=== PATIENT | female | born 1955 | race Caucasian/White ===

== ENCOUNTER 2019-08-13 09:05 | Outpatient (CLI) | payer OTHER, SELFPAY ==
--- NOTE | 2019-08-13 09:09 | ECG_ITS ---
Measurements Intervals [place] Rate: 67 P: 66 ME: 149 QRS: 61 QRSD: 88 T: 29 QT: 390 QTc: 413 Interpretive Statements SINUS RHYTHM BORDERLINE R WAVE PROGRESSION, ANTERIOR LEADS NONSPECIFIC T-WAVE ABNORMALITY- INFERIOR LEADS BORDERLINE ECG Electronically Signed On 08-13-2019 9:35:40 CDT by Raul Jacinto D.O.
[2019-08-13 09:18] LABS: Basophils Absolute Auto 0.02 K/mm3 (0.00-0.10); Basophils Percent Auto 0.3 % (0.0-1.0); Eosinophils Absolute Auto 0.13 K/mm3 (0.02-0.50); Eosinophils Percent Auto 1.8 % (1.0-6.0); Hematocrit 43.1 % (35.0-49.0); Immature Granulocyte Absolute 0.03 K/mm3 (0.00-0.00); Immature Granulocyte Percent A 0.4 % (0.0-0.0); Lymphocytes Absolute Auto 2.51 K/mm3 (1.10-4.50); Lymphocytes Percent Auto 34.4 % (18.0-42.0); Mean Corpuscular HGB Conc 32.5 g/dL (32.0-36.0); Mean Corpuscular Hemoglobin 29.3 pg (27.0-31.0); Mean Corpuscular Volume 90.2 fL (78.0-102.0); Mean Platelet Volume 9.4 fl (9.2-11.8); Monocytes Absolute Auto 0.63 K/mm3 (0.10-0.90); Monocytes Percent Auto 8.6 % (2.0-11.0); Neutrophils Percent Auto 54.5 % (50.0-70.0); Platelet Count Result 157 K/mm3 (150-420); Red Blood Count 4.78 M/mm3 (4.20-5.40); Red Cell Distribution Width 12.2 % (11.6-14.4); White Blood Count 7.3 K/mm3 (4.8-10.8)
[2019-08-13 09:29] LABS: Prothrombin Time 10.5 Seconds (9.64-11.0)
[2019-08-13 09:47] LABS: Hemoglobin A1C 8.6 % (<5.7)
[2019-08-13 10:21] LABS: Alanine Aminotransferase 39 U/L (14-59); Albumin Level 3.7 g/dL (3.4-5.0); Alkaline Phosphatase 87 U/L (46-116); Anion Gap 15.7 mmol/L (7-16); Aspartate Amino Transferase 40 U/L (15-37); Bilirubin,Total 0.7 mg/dL (0.00-1.00); Blood Urea Nitrogen 24 mg/dL (7-18); Calcium 8.9 mg/dL (8.5-10.1); Carbon Dioxide 27 mmol/L (21-32); Chloride 104 mmol/L (98-108); Cholesterol 170 mg/dL (0-200); Estimated Glomerular Filt Rate > 60; Glucose 164 mg/dL (70-99); HDL Direct 28 mg/dL (40-60); LDL Cholesterol Calculated 104 mg/dL (<130); Osmolality Calculated 302 mOsm/kg (285-295); Potassium 4.7 mmol/L (3.5-5.1); Sodium 142 mmol/L (136-145); Total Protein 7.3 g/dL (6.4-8.2); Triglycerides 189 mg/dL (0-150)
== END 2019-08-13 09:06 | disposition home or self-care (01) ==
PROVIDERS: PCP Nurse Practitioner Family; Visit Provider Nurse Practitioner Family
DX: Z01.818 Encounter for other preprocedural examination (principal); E11.9 Type 2 diabetes mellitus without complications; E78.5 Hyperlipidemia, unspecified
CPT/HCPCS: 36415; 80053; 80061; 83036; 85025; 85610; 93005

== ENCOUNTER 2020-05-05 09:58 | Outpatient (CLI) | payer OTHER, SELFPAY ==
--- NOTE | 2020-05-05 10:02 | ECG_ITS ---
Measurements Intervals [place] Rate: 71 P: 64 TN: 147 QRS: 44 QRSD: 92 T: 186 QT: 376 QTc: 411 Interpretive Statements SINUS RHYTHM BORDERLINE R WAVE PROGRESSION, ANTERIOR LEADS BORDERLINE ST-T WAVE ABNORMALITY- INF/HIGH LAT LEADS BASELINE ARTIFACT- II, III, AVR, AVF, V6 BORDERLINE ECG Electronically Signed On 05-05-2020 10:30:57 PANTOGRAPHER by Raul Jacinto D.O.
[2020-05-05 10:25] LABS: Basophils Absolute Auto 0.03 K/mm3 (0.00-0.10); Basophils Percent Auto 0.4 % (0.0-1.0); Eosinophils Absolute Auto 0.09 K/mm3 (0.02-0.50); Eosinophils Percent Auto 1.3 % (1.0-6.0); Hematocrit 46.5 % (35.0-42.0); Hemoglobin 14.8 g/dL (11.7-13.8); Immature Granulocyte Absolute 0.03 K/mm3 (0.00-0.00); Immature Granulocyte Percent A 0.4 % (0.0-0.0); Lymphocytes Absolute Auto 2.33 K/mm3 (1.10-4.50); Lymphocytes Percent Auto 34.4 % (18.0-42.0); Mean Corpuscular HGB Conc 31.8 g/dL (32.0-36.0); Mean Corpuscular Hemoglobin 28.3 pg (27.0-31.0); Mean Corpuscular Volume 88.9 fL (78.0-102.0); Mean Platelet Volume 9.6 fl (9.2-11.8); Monocytes Absolute Auto 0.61 K/mm3 (0.10-0.90); Neutrophils Absolute Auto 3.7 K/mm3 (1.7-7.2); Neutrophils Percent Auto 54.5 % (50.0-70.0); Platelet Count Result 177 K/mm3 (150-420); Red Blood Count 5.23 M/mm3 (4.20-5.40); Red Cell Distribution Width 12.3 % (11.6-14.4); White Blood Count 6.8 K/mm3 (4.8-10.8)
[2020-05-05 10:40] LABS: Creatinine Urine 75.95 mg/dL (40-278)
[2020-05-05 10:41] LABS: Microalbumin Urine Random 137.5 mg/L
[2020-05-05 10:42] LABS: Hemoglobin A1C 8.8 % (<5.7)
[2020-05-05 10:57] LABS: Alanine Aminotransferase 33 U/L (14-59); Albumin Level 3.7 g/dL (3.4-5.0); Alkaline Phosphatase 92 U/L (46-116); Anion Gap 9 mmol/L (8-16); Aspartate Amino Transferase 23 U/L (15-37); Blood Urea Nitrogen 17 mg/dL (7-18); Calcium 8.8 mg/dL (8.5-10.1); Carbon Dioxide 31 mmol/L (21-32); Chloride 101 mmol/L (98-108); Cholesterol 200 mg/dL (0-200); Estimated Glomerular Filt Rate > 60; Glucose 200 mg/dL (70-99); HDL Direct 29 mg/dL (40-60); LDL Cholesterol Calculated 138 mg/dL (<130); Magnesium 1.7 mg/dL (1.8-2.4); Osmolality Calculated 299 mOsm/kg (285-295); Potassium 4.3 mmol/L (3.5-5.1); Sodium 141 mmol/L (136-145); Total Protein 7.8 g/dL (6.4-8.2); Triglycerides 163 mg/dL (0-150)
== END 2020-05-05 09:59 | disposition home or self-care (01) ==
PROVIDERS: PCP Family Medicine; Visit Provider Nurse Practitioner Family
DX: Z01.818 Encounter for other preprocedural examination (principal); I10 Essential (primary) hypertension; E11.9 Type 2 diabetes mellitus without complications; E78.5 Hyperlipidemia, unspecified; E83.42 Hypomagnesemia
CPT/HCPCS: 36415; 80053; 80061; 82043; 83036; 83735; 85025; 93005

== ENCOUNTER 2020-05-13 11:44 | Outpatient (CLI) | payer MEDICARE, SELFPAY ==
[2020-05-13 23:53] LABS: SARS-CoV-2 RNA PCR Negative
== END 2020-05-13 11:45 | disposition home or self-care (01) ==
PROVIDERS: PCP Nurse Practitioner Family; Visit Provider Nurse Practitioner Family
DX: Z01.818 Encounter for other preprocedural examination (principal); Z20.822 Contact with and (suspected) exposure to COVID-19
CPT/HCPCS: C9803; U0003; U0005

== ENCOUNTER 2020-06-10 12:32 | Outpatient (CLI) | payer OTHER, SELFPAY ==
[2020-06-11 01:17] LABS: SARS-CoV-2 RNA PCR Negative
== END 2020-06-10 12:33 | disposition home or self-care (01) ==
LOC: CHSLAB 12:37
PROVIDERS: PCP Nurse Practitioner Family
DX: Z01.818 Encounter for other preprocedural examination (principal); Z20.822 Contact with and (suspected) exposure to COVID-19
CPT/HCPCS: C9803; U0003; U0005

== ENCOUNTER 2021-07-17 09:45 | Outpatient (CLI) | payer MEDICARE, SELFPAY ==
[2021-07-17 09:58] LABS: Hematocrit 47.6 % (35.0-42.0); Mean Corpuscular HGB Conc 31.5 g/dL (32.0-36.0); Mean Corpuscular Hemoglobin 28.6 pg (27.0-31.0); Mean Corpuscular Volume 90.7 fL (78.0-102.0); Mean Platelet Volume 9.4 fl (9.2-11.8); Platelet Count Result 170 K/mm3 (150-420); Red Blood Count 5.25 M/mm3 (4.20-5.40); Red Cell Distribution Width 12.2 % (11.6-14.4); White Blood Count 6.9 K/mm3 (4.8-10.8)
[2021-07-17 10:08] LABS: Hemoglobin A1C 8.9 % (<5.7)
[2021-07-17 10:13] LABS: Creatinine Urine 121.14 mg/dL (40-278); MALB Creatinine Ratio 260.1 mg/g (0-30); Microalbumin Urine Random 315.1 mg/L
[2021-07-17 10:34] LABS: Alanine Aminotransferase 32 U/L (14-59); Albumin Level 3.9 g/dL (3.4-5.0); Alkaline Phosphatase 103 U/L (46-116); Anion Gap 9 mmol/L (8-16); Aspartate Amino Transferase 34 U/L (15-37); Blood Urea Nitrogen 12 mg/dL (7-18); Carbon Dioxide 31 mmol/L (21-32); Chloride 102 mmol/L (98-108); Cholesterol 195 mg/dL (0-200); Estimated Glomerular Filt Rate > 60; Glucose 213 mg/dL (70-99); HDL Direct 37 mg/dL (40-60); LDL Cholesterol Calculated 129 mg/dL (<130); Magnesium 1.7 mg/dL (1.8-2.4); Osmolality Calculated 299 mOsm/kg (285-295); Potassium 3.8 mmol/L (3.5-5.1); Sodium 142 mmol/L (136-145); Total Protein 7.8 g/dL (6.4-8.2); Triglycerides 146 mg/dL (0-150)
== END 2021-07-17 09:46 | disposition home or self-care (01) ==
LOC: CHSLAB 09:49
PROVIDERS: PCP Family Medicine; Visit Provider Family Medicine
DX: E83.42 Hypomagnesemia (principal); E11.9 Type 2 diabetes mellitus without complications; I10 Essential (primary) hypertension
CPT/HCPCS: 36415; 80053; 80061; 82043; 83036; 83735; 85027

== ENCOUNTER 2022-07-05 08:58 | Outpatient (CLI) | payer MEDICARE, SELFPAY ==
--- NOTE | ~2022-07-05 | MMUS_ITS ---
EXAMINATION: MM diagnostic lien BI w rickey, US breast RT limited HISTORY: Palpable right breast mass for one week. Skin indentation. TECHNIQUE: Additional 3-D tomosynthesis images of the breasts were performed and synthetic 2-D images were generated. CAD analysis was submitted and interpreted. High resolution Limited right breast ult rasound was performed. COMPARISON: No prior studies for comparison. BREAST PARENCHYMAL COMPOSITION: Breast composed of scattered areas of fibroglandular density FINDINGS: MAMMOGRAPHIC FINDINGS: There are no suspicious masses, calcifications or architectural distortion in the left breast. In the right breast in the area of palpable concern there is a spiculated mass in the upper outer quadrant, middle third. There are small lymph nodes overlying the right pectoralis muscle. ULTRASOUND: Limited right breast ultrasound: At 10:00, 5 cm from the nipple there is an irregular shaped shadowin g mass measuring 2.6 x 2.4 x 2.4 cm with internal vascularity and posterior shadowing. At 11:00, 10 c m from the nipple there is an oval circumscribed hypoechoic mass measuring 7 mm without posterior fea tures or internal vascularity, likely benign. IMPRESSION: 1. Normal right breast mass at 10:00, 5 cm from the nipple measuring 2.6 cm maximum dimension. 2. Ultrasound-guided right breast biopsy recommended. BI-RADS category 5, highly suggestive of malignancy. Dr. Teo Santana discussed with Altagracia Ryan NP at 07/05/2022 10:12 CDT. Reviewed, dictated and finalized at location A. IMPRESSION: 1. Normal right breast mass at 10:00, 5 cm from the nipple measuring 2.6 cm max imum dimension. 2. Ultrasound-guided right breast biopsy recommended. BI-RADS category 5, highly suggestive of malignancy. Dr. Teo Santana discussed with Altagracia Ryan NP at 07/05/2022 10:12 CDT.
== END 2022-07-05 08:59 | disposition home or self-care (01) ==
LOC: CHSIMG 09:02
PROVIDERS: PCP Nurse Practitioner Family; Visit Provider Nurse Practitioner Family
DX: N63.15 Unspecified lump in the right breast, overlapping quadrants (principal); R92.8 Other abnormal and inconclusive findings on diagnostic imaging of breast
CPT/HCPCS: 76642; 77062; 77066; G0279

== ENCOUNTER 2022-07-17 08:54 | Outpatient (CLI) | payer MEDICARE, SELFPAY ==
--- NOTE | ~2022-07-17 | MMUS_ITS ---
EXAMINATION: US GUIDED NEEDLE BIOPSY DATE: 07/17/2022 13:45 CDT INDICATION: Right 10:00 breast mass. TECHNIQUE AND FINDINGS: The risks and potential benefits of the procedure were discussed with the patient, and written inform ed consent was obtained. Timeout procedure was performed. After sterile preparation of the right tam st, 1% lidocaine was utilized for local anesthesia. A 14G spring-loaded biopsy gun needle was advanced to the edge of the region of interest from a media l approach utilizing sonographic guidance. A total of three tissue core samples were obtained throug h the lesion. An Inrad tissue marker clip was then placed at the biopsy site. Hemostasis was achieve d. A sterile bandage was applied. The patient tolerated procedure well . There was bleeding post biopsy, which resolved following 10 m inutes manual compression. The patient was given verbal instructions [facility] A two view mammogram was performed to document tissue marker clip placement. The tissue samp les were submitted to surgical pathology for histologic analysis. IMPRESSION: 1. Successful ultrasound guided biopsy of right 10:00 breast mass with biopsy marker placement. Plea se refer to pathology report for histologic analysis. Reviewed, dictated and finalized at Location A. Reviewed, dictated and finalized at location L. IMPRESSION: 1. Successful ultrasound guided biopsy of right 10:00 breast mass with biopsy marker placement. Please refer to pathology report for histologic analysis.
== END 2022-07-17 08:55 | disposition home or self-care (01) ==
LOC: CHSIMG 08:56
PROVIDERS: PCP Nurse Practitioner Family; Visit Provider Nurse Practitioner Family
DX: N63.15 Unspecified lump in the right breast, overlapping quadrants (principal); R92.8 Other abnormal and inconclusive findings on diagnostic imaging of breast; C50.811 Malignant neoplasm of overlapping sites of right female breast
CPT/HCPCS: 19083; 77065; 88305; 88342; 88360; A4648

== ENCOUNTER 2022-10-13 09:05 | Outpatient (CLI) | payer MEDICARE, SELFPAY ==
[2022-10-13 09:16] LABS: Appearance Urine Clear (Clear); Bilirubin Urine Negative (Negative); Blood Urine 3+ (Negative); Color Urine Light Yellow (Yellow); Glucose Urine UA Trace (Negative); Ketones Urine Trace (Negative); Leukocyte Esterase Ur 1+ (Negative); Nitrate Urine Negative (Negative); Protein Urine Negative (Negative); Specific Grav Ur 1.025 (1.010-1.020); Urobilinogen Urine 0.2 mg/dL (0.2-1.0); pH Urine 5.5 (5.0-8.0)
[2022-10-13 09:24] LABS: Add Urine Microscopic? YES; Squamous Epithelial Cell Urine Few /hpf (Few)
[2022-10-13 09:25] LABS: Bacteria Urine 1+ /hpf; Calcium Oxalate Crystals Urine Many /hpf
== END 2022-10-13 09:06 | disposition home or self-care (01) ==
LOC: CHSLAB 09:07
PROVIDERS: PCP Nurse Practitioner Family; Visit Provider Nurse Practitioner Family
DX: R35.0 Frequency of micturition (principal)
CPT/HCPCS: 81001; 87077; 87086; 87088; 87186

== ENCOUNTER 2022-10-30 10:19 | Outpatient (CLI) | payer MEDICARE, SELFPAY ==
[2022-10-30 10:34] LABS: Basophils Absolute Auto 0.03 K/mm3 (0.00-0.10); Basophils Percent Auto 0.4 % (0.0-1.0); Eosinophils Absolute Auto 0.14 K/mm3 (0.02-0.50); Hematocrit 44.3 % (35.0-42.0); Hemoglobin 14.2 g/dL (11.7-13.8); Immature Granulocyte Absolute 0.04 K/mm3 (0.00-0.00); Immature Granulocyte Percent A 0.6 % (0.0-0.0); Lymphocytes Absolute Auto 2.17 K/mm3 (1.10-4.50); Lymphocytes Percent Auto 31.1 % (18.0-42.0); Mean Corpuscular HGB Conc 32.1 g/dL (32.0-36.0); Mean Corpuscular Hemoglobin 28.6 pg (27.0-31.0); Mean Corpuscular Volume 89.1 fL (78.0-102.0); Mean Platelet Volume 9.9 fl (9.2-11.8); Monocytes Absolute Auto 0.54 K/mm3 (0.10-0.90); Monocytes Percent Auto 7.7 % (2.0-11.0); Neutrophils Absolute Auto 4.1 K/mm3 (1.7-7.2); Neutrophils Percent Auto 58.2 % (50.0-70.0); Platelet Count Result 160 K/mm3 (150-420); Red Blood Count 4.97 M/mm3 (4.20-5.40); Red Cell Distribution Width 12.7 % (11.6-14.4)
[2022-10-30 10:35] LABS: Appearance Urine Clear (Clear); Bilirubin Urine Negative (Negative); Blood Urine Trace-Intact (Negative); Color Urine Light Yellow (Yellow); Glucose Urine UA Trace (Negative); Ketones Urine Negative (Negative); Leukocyte Esterase Ur 1+ (Negative); Nitrate Urine Negative (Negative); Protein Urine Negative (Negative); Specific Grav Ur 1.025 (1.010-1.020); Urobilinogen Urine 0.2 mg/dL (0.2-1.0)
[2022-10-30 10:40] LABS: Add Urine Microscopic? YES; Bacteria Urine Trace /hpf; Mucus Urine Few /lpf; Squamous Epithelial Cell Urine Few /hpf (Few)
[2022-10-30 11:01] LABS: Hemoglobin A1C 7.4 % (<5.7)
[2022-10-30 11:04] LABS: Alanine Aminotransferase 21 U/L (14-59); Albumin Level 3.6 g/dL (3.4-5.0); Alkaline Phosphatase 77 U/L (46-116); Aspartate Amino Transferase 11 U/L (15-37); Bilirubin,Total 0.9 mg/dL (0.00-1.00); Blood Urea Nitrogen 20 mg/dL (7-18); Chloride 106 mmol/L (98-108); Cholesterol 155 mg/dL (0-200); Estimated Glomerular Filt Rate > 60; Glucose 148 mg/dL (70-99); HDL Direct 36 mg/dL (40-60); LDL Cholesterol Calculated 92 mg/dL (<130); Osmolality Calculated 303 mOsm/kg (285-295); Potassium 4.1 mmol/L (3.5-5.1); Sodium 144 mmol/L (136-145); Total Protein 7.3 g/dL (6.4-8.2); Triglycerides 137 mg/dL (0-150)
[2022-10-30 11:10] LABS: Anion Gap 10 mmol/L (8-16); Carbon Dioxide 28 mmol/L (21-32)
[2022-11-01 18:03] LABS: Vitamin D 25 Hydroxy 10 ng/mL (30-100)
== END 2022-10-30 10:20 | disposition home or self-care (01) ==
LOC: CHSLAB 10:21
PROVIDERS: PCP Family Medicine; Visit Provider Nurse Practitioner Family
DX: R35.0 Frequency of micturition (principal); E55.9 Vitamin D deficiency, unspecified; I10 Essential (primary) hypertension; E78.5 Hyperlipidemia, unspecified; E11.9 Type 2 diabetes mellitus without complications
CPT/HCPCS: 36415; 80053; 80061; 81001; 82306; 83036; 85025

== ENCOUNTER 2023-03-25 12:46 | Emergency (ER) | payer MEDICARE, SELFPAY ==
[2023-03-25 12:52] VITALS: BP 161/74; PULSE 86; RESP 18; TEMP 37; O2SAT 98
--- NOTE | 2023-03-25 12:58 | ED.GENADULT ---
HPI - General Adult General Chief complaint: Unspecified Stated complaint: wound drain leakage Time Seen by Provider: 03/25/23 12:47 History of Present Illness HPI narrative: Teo is a 67F with a PMH of asthma, DMII, HLD, HTN and invasive ductal carcinoma of left breast. She had a lumpectomy this summer but had a lymph node dissection last week. She had essentially no drainage all week but had some clear drainage around the drain today. No fevers, chills, N/V, bleeding or change in her pain. Related Data Home Medications Medication Instructions Recorded Confirmed cholecalciferol (vitamin D3) 25 1,000 unit PO DAILY 02/09/19 11/28/22 mcg (1,000 unit) capsule (Vitamin D3) Allergies Allergy/AdvReac Type Severity Reaction Status Date / Time No Known Allergies Allergy Verified 01/31/23 07:35 Review of Systems Review of Systems: All systems reviewed & are unremarkable except as noted in HPI and below PMFSH Past Medical History Medical History Diabetes History of CVA (cerebrovascular accident) HTN (hypertension) Hyperlipidemia Obesity (BMI 30.0-34.9) Preoperative clearance Surgical History Surgical History History of section Family History Family History Mother Hypertension Other Family history of malignant neoplasm Social History Social History Smoking status: Never smoker Alcohol intake: never Lack of Transportation: No Lack of Food: Never True Current Housing: I Have Housing Concerned About Future Housing: No Difficulty Paying Gas/Electric Bills: No Currently Unemployed: No Education: Master's Degree or Higher Difficulty w/ Childcare or Family Care: No Living arrangements: with family Exam Const: General: cooperative, healthy appearing, comfortable, no acute distress, well developed, alert, awake and Physically active Orientation/consciousness: oriented to person, oriented to place and oriented to time HENMT: Head: normal to inspection, normocephalic and atraumatic Ears: hearing grossly normal bilaterally and external ears normal Face/Nose/Sinus: Normal external nose present Eyes: General: appearance normal, both eyes and all related structures Periorbital: periorbital findings normal Sclera: sclerae normal Pupils: Equal, round and reactive pupils present Neck: Neck: normal visual inspection Chest: Chest palpation & inspection: normal inspection of the chest Resp: Effort & Inspection: normal respiratory effort, able to speak in complete sentences and no respiratory distress Cardio: Jugular venous distension: no JVD Skin: General skin exam: normal color and no rashes or lesions noted Other: Drain in place i left lateral chest with minimal erythema and clear drainage around the drain Neuro: General: oriented to person, oriented to place and oriented to time Cranial nerves: Yes Equal, round and reactive pupils present Extrem: General: normal to inspection Course Course Emergency Course: I spoke with Dr. Murray of surgery at [facility] that recommended close follow up as she has no systemic symptoms. Vital Signs Vital signs: Vital Signs Temperature 98.6 F 03/25/23 12:52 Pulse Rate 86 03/25/23 12:52 Respiratory Rate 18 03/25/23 12:52 Blood Pressure 161/74 H 03/25/23 12:52 Pulse Oximetry 98 03/25/23 12:52 Oxygen Delivery Room Air 03/25/23 12:52 Temperature 98.6 F 03/25/23 12:52 Pulse Rate 86 03/25/23 12:52 Respiratory Rate 18 03/25/23 12:52 Blood Pressure 161/74 H 03/25/23 12:52 Pulse Oximetry 98 03/25/23 12:52 Oxygen Delivery Room Air 03/25/23 12:52 Medical Decision Making Vital Signs Vital Signs: Vital Signs Temperature 98.6 F 03/25/23 12:52 Pulse Rate
[2023-03-25 13:07] LABS: Basophils Absolute Auto 0.02 K/mm3 (0.00-0.10); Basophils Percent Auto 0.3 % (0.0-1.0); Eosinophils Absolute Auto 0.14 K/mm3 (0.02-0.50); Eosinophils Percent Auto 2.3 % (1.0-6.0); Hematocrit 40.7 % (35.0-42.0); Hemoglobin 12.9 g/dL (11.7-13.8); Immature Granulocyte Absolute 0.03 K/mm3 (0.00-0.00); Immature Granulocyte Percent A 0.5 % (0.0-0.0); Lymphocytes Absolute Auto 1.82 K/mm3 (1.10-4.50); Lymphocytes Percent Auto 29.9 % (18.0-42.0); Mean Corpuscular HGB Conc 31.7 g/dL (32.0-36.0); Mean Corpuscular Volume 91.5 fL (78.0-102.0); Mean Platelet Volume 9.5 fl (9.2-11.8); Monocytes Absolute Auto 0.55 K/mm3 (0.10-0.90); Neutrophils Absolute Auto 3.5 K/mm3 (1.7-7.2); Platelet Count Result 201 K/mm3 (150-420); Red Blood Count 4.45 M/mm3 (4.20-5.40); Red Cell Distribution Width 12.9 % (11.6-14.4); White Blood Count 6.1 K/mm3 (4.8-10.8)
[2023-03-25 13:21] LABS: Alanine Aminotransferase 15 U/L (14-59); Alkaline Phosphatase 76 U/L (46-116); Anion Gap 6 mmol/L (8-16); Aspartate Amino Transferase 10 U/L (15-37); Bilirubin,Total 0.5 mg/dL (0.00-1.00); Blood Urea Nitrogen 17 mg/dL (7-18); CRP 4.2 mg/dL (0.0-0.9); Carbon Dioxide 32 mmol/L (21-32); Chloride 103 mmol/L (98-108); Estimated CRCL calculation 81 ml/min; Estimated Glomerular Filt Rate > 60; Glucose 169 mg/dL (70-99); Osmolality Calculated 297 mOsm/kg (285-295); Potassium 4.1 mmol/L (3.5-5.1); Sodium 141 mmol/L (136-145); Total Protein 7.4 g/dL (6.4-8.2)
[2023-03-25 13:58] VITALS: BP 131/78; PULSE 86; RESP 18; O2SAT 99
[2023-03-25 14:00] VITALS: BP 131/78; PULSE 80; RESP 20; TEMP 36.8; O2SAT 95
== END 2023-03-25 14:02 | disposition home or self-care (01) ==
PROVIDERS: Emergency Provider Family Medicine; PCP Family Medicine
DX: T81.31XA Disruption of external operation (surgical) wound, not elsewhere classified, initial encounter (principal); E11.9 Type 2 diabetes mellitus without complications; E78.5 Hyperlipidemia, unspecified; I10 Essential (primary) hypertension; Z86.73 Personal history of transient ischemic attack (TIA), and cerebral infarction without residual deficits; Y83.8 Other surgical procedures as the cause of abnormal reaction of the patient, or of later complication, without mention of misadventure at the time of the procedure
CPT/HCPCS: 36415; 80053; 85025; 86140; 99283

== ENCOUNTER 2023-05-07 10:21 | Outpatient (CLI) | payer MEDICARE, SELFPAY ==
[2023-05-07 10:47] VITALS: BP 133/70; PULSE 86; RESP 14; TEMP 36.4; O2SAT 97; BMI 32.1
[2023-05-07] MEDS: FAMOTIDINE 20 MG/2 ML VIAL IV PUSH (11:19)
[2023-05-07] MEDS: SODIUM CHLORIDE 0.9% IV 500 ML 10 ML IVPB (11:20)
[2023-05-07] MEDS: PEGFILGRASTIM (ONPRO KIT) 6 MG/0.6 ML SYRINGE SUB-Q (13:43)
[2023-05-07] MEDS: HEPARIN SODIUM LOCK FLUSH 500 UNITS/5 ML SYRINGE IV PUSH (13:44)
[2023-05-07 14:20] VITALS: BP 140/71; PULSE 72; RESP 14; TEMP 36.7; O2SAT 98
--- NOTE | 2023-05-07 14:22 | PC.NURSE ---
Patient here for cycle 1 of chemo regimen. Education material given to her by [place] HEATHER went over. All concerns answered/discussed. Labs were done up in [place] and already ok'd by Dr. Perdue. Chemo regimen administered. SEE MAR. Tolerated well. Neulasta Onpro applied and education booklet discussed and sent home with. Will return 05/14/23 at 1030 for cycle 2. Safe exit of hospital per ambulatory.
== END 2023-05-07 10:22 | disposition home or self-care (01) ==
LOC: CHSTREATRM 10:24
PROVIDERS: PCP Family Medicine; Visit Provider Internal Medicine Hematology & Oncology
DX: Z51.11 Encounter for antineoplastic chemotherapy (principal); C50.111 Malignant neoplasm of central portion of right female breast; D70.8 Other neutropenia
CPT/HCPCS: 96377; 96360; 96361; 96367; 96375; 96409; 96413; 96417; J0185; J1100; J2405; J2506; J7040; J7050; J9000; J9070

== ENCOUNTER 2023-05-20 11:07 | Outpatient (CLI) | payer MEDICARE, SELFPAY ==
[2023-05-20 11:23] LABS: Hematocrit 37.2 % (35.0-42.0); Hemoglobin 11.7 g/dL (11.7-13.8); Mean Corpuscular HGB Conc 31.5 g/dL (32.0-36.0); Mean Corpuscular Hemoglobin 27.9 pg (27.0-31.0); Mean Corpuscular Volume 88.8 fL (78.0-102.0); Mean Platelet Volume 9.6 fl (9.2-11.8); Platelet Count Result 101 K/mm3 (150-420); Red Blood Count 4.19 M/mm3 (4.20-5.40); Red Cell Distribution Width 12.7 % (11.6-14.4); White Blood Count 14.2 K/mm3 (4.8-10.8)
[2023-05-20 11:45] LABS: Alanine Aminotransferase 19 U/L (14-59); Albumin Level 3.2 g/dL (3.4-5.0); Alkaline Phosphatase 114 U/L (46-116); Anion Gap 10 mmol/L (8-16); Aspartate Amino Transferase 11 U/L (15-37); Bilirubin,Total 0.4 mg/dL (0.00-1.00); Blood Urea Nitrogen 16 mg/dL (7-18); Calcium 8.7 mg/dL (8.5-10.1); Carbon Dioxide 27 mmol/L (21-32); Chloride 104 mmol/L (98-108); Estimated Glomerular Filt Rate > 60; Glucose 284 mg/dL (70-99); Osmolality Calculated 303 mOsm/kg (285-295); Potassium 4.1 mmol/L (3.5-5.1); Sodium 141 mmol/L (136-145); Total Protein 6.7 g/dL (6.4-8.2)
[2023-05-20 12:16] LABS: Band Neutrophils Percent 1 % (0-6); Basophils Percent Manual 0 % (0-1); Eosinophils Percent Manual 0 % (1-6); Lymphocytes Absolute Manual 2.84 K/mm3 (1.1-4.5); Lymphocytes Percent Manual 20 % (18-44); Monocytes Absolute Manual 0.71 K/mm3 (0.1-0.90); Monocytes Percent Manual 5 % (3-9); Neutrophils Absolute Manual 10.65 K/mm3 (1.7-7.2); Neutrophils Percent Manual 74 % (46-73); Total Cells Counted 100
[2023-05-20 12:17] LABS: Platelet Estimate Decreased (Adequate)
== END 2023-05-20 11:08 | disposition home or self-care (01) ==
LOC: CHSLAB 11:09
PROVIDERS: PCP Family Medicine; Visit Provider Internal Medicine Hematology
DX: C50.111 Malignant neoplasm of central portion of right female breast (principal)
CPT/HCPCS: 36415; 80053; 85025; 85055

== ENCOUNTER 2023-05-21 10:00 | Outpatient (CLI) | payer MEDICARE, SELFPAY ==
[2023-05-21 10:19] VITALS: BP 110/67; PULSE 78; RESP 16; TEMP 36.6; O2SAT 98
[2023-05-21 10:21] VITALS: BMI 31.5
[2023-05-21] MEDS: SODIUM CHLORIDE 0.9% IV 500 ML 10 ML IVPB (10:52)
[2023-05-21] MEDS: FAMOTIDINE 20 MG/2 ML VIAL IV PUSH (10:52)
[2023-05-21] MEDS: ONDANSETRON INJ 16 MG, dexAMETHasone SOD 4 MG/ML INJ 12 MG in SODIUM CHLORIDE 0.9% IV 1... 300 MG IVPB (11:00)
[2023-05-21] MEDS: SODIUM CHLORIDE 0.9% IV 500 ML 1000 ML IVPB (13:05)
[2023-05-21] MEDS: PEGFILGRASTIM (ONPRO KIT) 6 MG/0.6 ML SYRINGE SUB-Q (13:31)
[2023-05-21] MEDS: HEPARIN SODIUM LOCK FLUSH 500 UNITS/5 ML SYRINGE IV PUSH (13:58)
[2023-05-21 14:01] VITALS: BP 120/73; PULSE 78; RESP 14; TEMP 36.6; O2SAT 98
--- NOTE | 2023-05-21 14:02 | PC.NURSE ---
Patient here for cycle 2 of chemo regimen. Labs reviewed from 05/20/23 here in our lab and ok'd. Patient went for follow up appointments with surgeon and decorative cutting machine tender in [place] 05/16/23. Reports had some EKG changes as compared to last EKG before chemo. Ended up get a cardiac work up and stress test. Everything groover and turner ok. Ongoing education on chemo/cancer continues. Chemo regimen administered. See MAR. Tolerated well. Will see Dr. Aranda 05/22/23 in clinic here at [place]. Will return 06/04/23 at 1000 for cycle 3 chemo. Safe exit of hospital per self/ambulatory.
== END 2023-05-21 14:16 | disposition home or self-care (01) ==
PROVIDERS: PCP Family Medicine; Visit Provider Internal Medicine Hematology & Oncology
DX: Z51.11 Encounter for antineoplastic chemotherapy (principal); C50.111 Malignant neoplasm of central portion of right female breast; D70.8 Other neutropenia
CPT/HCPCS: 96367; 96375; 96377; 96409; 96411; 96413; 96417; J0185; J1100; J2405; J2506; J7040; J7050; J9000; J9070

== ENCOUNTER 2023-06-04 09:52 | Outpatient (CLI) | payer MEDICARE, SELFPAY ==
[2023-06-04] MEDS: SODIUM CHLORIDE 0.9% IV 1,000 ML 10 ML IVPB (10:05)
[2023-06-04] MEDS: FAMOTIDINE 20 MG/2 ML VIAL IV PUSH (10:10)
[2023-06-04] MEDS: ONDANSETRON INJ 16 MG, dexAMETHasone SOD 4 MG/ML INJ 12 MG in SODIUM CHLORIDE 0.9% IV 1... 300 MG IVPB (10:20)
[2023-06-04 10:44] VITALS: BP 123/75; PULSE 92; RESP 14; TEMP 36.6; O2SAT 97; BMI 31.6
[2023-06-04] MEDS: HEPARIN SODIUM LOCK FLUSH 500 UNITS/5 ML SYRINGE IV PUSH (13:05)
[2023-06-04] MEDS: PEGFILGRASTIM (ONPRO KIT) 6 MG/0.6 ML SYRINGE SUB-Q (13:06)
[2023-06-04 13:13] VITALS: BP 117/70; PULSE 89; RESP 16; TEMP 36.6; O2SAT 97
--- NOTE | 2023-06-04 13:21 | PC.NURSE ---
Patient here for cycle 3 of chemo regimen. All concerns voiced answered. Reviewed labs from 06/03/[address] Perdue about Platelets and WBC. Dr. Perdue reviewed labs and reported to proceed with chemo today. Chemo regimen administered--see MAR. Tolerated well. Will see Dr. Perdue in Clinic tomorrow 06/05/23. #4 chemo 06/17/33 at 1000 with labs 06/17/23.
== END 2023-06-04 13:20 | disposition home or self-care (01) ==
LOC: CHSTREATRM 09:54
PROVIDERS: PCP Family Medicine; Visit Provider Internal Medicine Hematology
DX: Z51.11 Encounter for antineoplastic chemotherapy (principal); C50.111 Malignant neoplasm of central portion of right female breast; D70.8 Other neutropenia; E11.9 Type 2 diabetes mellitus without complications; E78.5 Hyperlipidemia, unspecified; I10 Essential (primary) hypertension
CPT/HCPCS: 96360; 96367; 96375; 96377; 96409; 96411; 96413; 96417; J0185; J1100; J2405; J2506; J7030; J7050; J9000; J9070

== ENCOUNTER 2023-06-10 13:35 | Outpatient (CLI) | payer MEDICARE, SELFPAY ==
--- NOTE | ~2023-06-10 | XR_ITS ---
EXAMINATION: XR chest 2V DATE: 06/10/2023 14:03 INDICATION: Nasal congestion TECHNIQUE: frontal and lateral views of the chest were obtained. COMPARISON: None FINDINGS: Left internal jugular central venous port catheter with distal tip at the caudal superior vena cava. The lungs are clear with no focal airspace opacities, pulmonary edema, pleural effusion or pneumothor ax. The cardiomediastinal silhouette is normal. Surgical clips at the right axilla. Old healed proxim al right humeral fracture deformity. IMPRESSION: 1. No acute cardiopulmonary disease. Reviewed, dictated and finalized at location B.
[2023-06-10 14:29] LABS: SARS-CoV-2 RNA PCR Negative (Negative)
[2023-06-10 14:32] LABS: Influenza A QL RT-PCR Negative (Negative); Influenza B QL RT-PCR Negative (Negative); RSV RNA, RT-PCR Negative (Negative)
== END 2023-06-10 13:36 | disposition home or self-care (01) ==
LOC: CHSLAB 13:37
PROVIDERS: PCP Family Medicine; Visit Provider Internal Medicine Hematology
DX: R09.81 Nasal congestion (principal); Z20.822 Contact with and (suspected) exposure to COVID-19
CPT/HCPCS: 71046; 87637

== ENCOUNTER 2023-06-18 09:58 | Outpatient (CLI) | payer MEDICARE, SELFPAY ==
[2023-06-18 10:30] VITALS: BP 130/56; PULSE 88; RESP 16; TEMP 36.6; O2SAT 96; BMI 29.3
[2023-06-18] MEDS: SODIUM CHLORIDE 0.9% IV 1,000 ML 10 ML IV CONT (10:35)
[2023-06-18] MEDS: FAMOTIDINE 20 MG/2 ML VIAL IV PUSH (10:35)
[2023-06-18] MEDS: ONDANSETRON INJ 16 MG, dexAMETHasone SOD 4 MG/ML INJ 12 MG in SODIUM CHLORIDE 0.9% IV 1... 300 MG IVPB (10:43)
[2023-06-18] MEDS: PEGFILGRASTIM (ONPRO KIT) 6 MG/0.6 ML SYRINGE SUB-Q (12:40)
[2023-06-18] MEDS: HEPARIN SODIUM LOCK FLUSH 500 UNITS/5 ML SYRINGE IV PUSH (12:52)
[2023-06-18 12:56] VITALS: BP 118/60; PULSE 88; RESP 14; TEMP 36.5; O2SAT 98
--- NOTE | 2023-06-18 13:49 | PC.NURSE ---
Patient here for cycle 4 chemo regimen. Labs reviewed from 06/17/23 and ok'd. Reports feeling tired, but better than last week. Ongoing chemo and Cancer education continues. Chemo regimen administered. SEE MAR. Tolerated well. Patient reports will see Dr. Perdue tomorrow in clinic. Next appt for chemo will depend on appt tomorrow. Safe exit of hospital per self/ambulatory.
== END 2023-06-18 13:52 | disposition home or self-care (01) ==
LOC: CHSTREATRM 10:01
PROVIDERS: PCP Family Medicine; Visit Provider Internal Medicine Hematology & Oncology
DX: Z51.11 Encounter for antineoplastic chemotherapy (principal); C50.111 Malignant neoplasm of central portion of right female breast; D70.8 Other neutropenia
CPT/HCPCS: 96360; 96367; 96375; 96377; 96411; 96413; J0185; J1100; J2405; J2506; J7030; J7050; J9000; J9070

== ENCOUNTER 2023-06-24 08:10 | Outpatient (CLI) | payer MEDICARE, SELFPAY ==
--- NOTE | ~2023-06-24 | DEXA_ITS ---
Bone Density Report Name: REESE MEJIA Age: 68 Sex: Female Ethnicity: White Date of : 1955 Indication: postmenopausal; screening for osteoporosis; height loss; prior fracture; cancer; Referring Provider: ANA MAZA Study: Bone densitometry was performed. Exam Date: June 24, 2023 Accession number: [id number] Bone Density: Region BMD T-score Z-score Classification AP Spine(L1-L4) 1.114 0.6 2.6 Normal Femoral Neck (Left) 0.678 -1.5 0.1 Osteopenia Total Hip (Left) 0.930 -0.1 1.3 Normal Femoral Neck (Right) 0.687 -1.5 0.2 Osteopenia Total Hip (Right) 0.918 -0.2 1.2 Normal Femoral Neck Mean 0.682 -1.5 0.2 Osteopenia Total Hip Mean 0.924 -0.1 1.3 Normal World Health Organization criteria for BMD impression classify patients as: Normal (T-score at or above -1.0), Osteopenia (T-score between -1.0 and -2.5), or Osteoporosis (T-score at or below -2.5). 10-year Fracture Risk(1): Major Osteoporotic Fracture 15% Hip Fracture 1.8% Reported Risk Factors: [place] (), Neck BMD=0.678, BMI=31.1, previous fracture (1) FRAX(R) Version 3.08. Fracture probability calculated for an untreated patient. Fracture probability may be lower if the patient has received treatment. Clinical Information Provided by Patient: Has had a low trauma fracture Has the following medical conditions: Cancer, chemo Patient maximum height was 68 Menopause Age: 5 Onset of menses at age 13 Number of children 1 Impression: The patient has low bone mass, based on the Left Femoral Neck T-score. The patient has risk factors, including: previous fracture. Discussion: BONE DENSITY IS LOW AT ONE OR MORE SKELETAL SITES. This patient's lowest T-score is low at one or more skeletal sites. It meets the World Health Organization's (WHO) criteria for ?low bone mass? (T-score between -1.0 and -2.5). The patient's 10-year risk of fracture as calculated by FRAX is less than the threshold where pharmacological therapy is recommended by the National Osteoporosis Foundation (NOF). However, all treatment decisions require clinical judgment and consideration of individual patient factors, including patient preferences, comorbidities, previous drug use, risk factors not captured in the FRAX model (e.g., frailty, falls, vitamin D deficiency, increased bone turnover, interval significant decline in bone density) and possible under or overestimation of fracture risk by FRAX. The patient should follow a healthful lifestyle (good nutrition with adequate calcium and vitamin D, and appropriate weight-bearing exercise). Follow-Up: Consider repeating this study in 2 to 3 years to reassess this patient's status, or sooner if there is some new clinical indication. Reported by: Dr. Kyaw Fenton on 06/24/2023
== END 2023-06-24 08:11 | disposition home or self-care (01) ==
LOC: CHSIMG 08:11
PROVIDERS: PCP Family Medicine; Visit Provider Internal Medicine Hematology
DX: Z78.0 Asymptomatic menopausal state (principal); M85.89 Other specified disorders of bone density and structure, multiple sites
CPT/HCPCS: 77080

== ENCOUNTER 2023-07-02 09:55 | Outpatient (CLI) | payer MEDICARE, SELFPAY ==
[2023-07-02] MEDS: SODIUM CHLORIDE 0.9% IV 250 ML 10 ML IVPB (10:00)
[2023-07-02 10:26] VITALS: BP 140/70; PULSE 72; RESP 14; TEMP 36.4; O2SAT 96; BMI 30.7
[2023-07-02] MEDS: FAMOTIDINE 20 MG/ISO 50 ML 20 MG/50 ML BAG 150 MG IVPB (10:32)
[2023-07-02] MEDS: diphenhydrAMINE HCl INJ 50 MG/ML VIAL 25 MG IV PUSH (10:53)
[2023-07-02] MEDS: ONDANSETRON INJ 16 MG, dexAMETHasone SOD 4 MG/ML INJ 12 MG in SODIUM CHLORIDE 0.9% IV 1... 300 MG IVPB (10:53)
[2023-07-02] MEDS: HEPARIN SODIUM LOCK FLUSH 500 UNITS/5 ML SYRINGE IV PUSH (11:29)
[2023-07-02 12:44] VITALS: BP 130/69; PULSE 68; RESP 14; TEMP 36.5; O2SAT 97
--- NOTE | 2023-07-02 12:47 | PC.NURSE ---
Patient here for cycle 5 chemo regimen. Education given. All concerns voiced answered. Chemo regimen administered. SEE MAR. Tolerated well Will return cycle 6 chemo 07/09/23 at 1000. Safe exit of hospital per self/ambulatory.
== END 2023-07-02 12:51 | disposition home or self-care (01) ==
LOC: CHSTREATRM 09:58
PROVIDERS: PCP Family Medicine; Visit Provider Internal Medicine Hematology
DX: Z51.11 Encounter for antineoplastic chemotherapy (principal); C50.111 Malignant neoplasm of central portion of right female breast; D70.8 Other neutropenia
CPT/HCPCS: 96367; 96375; 96413; J1100; J2405; J7050; J9267

== ENCOUNTER 2023-07-08 07:52 | Outpatient (RCR) | payer MEDICARE, SELFPAY ==
[2023-06-03 10:14] LABS: Hematocrit 37.3 % (35.0-42.0); Hemoglobin 11.7 g/dL (11.7-13.8); Immature Platelet Fraction Pct 2.4 % (1.0-7.0); Mean Corpuscular HGB Conc 31.4 g/dL (32.0-36.0); Mean Corpuscular Hemoglobin 28.3 pg (27.0-31.0); Mean Corpuscular Volume 90.3 fL (78.0-102.0); Platelet Count Result 95 K/mm3 (150-420); Red Blood Count 4.13 M/mm3 (4.20-5.40); Red Cell Distribution Width 13.3 % (11.6-14.4); White Blood Count 19.1 K/mm3 (4.8-10.8)
[2023-06-03 10:29] LABS: Band Neutrophils Percent 2 % (0-6); Basophils Percent Manual 0 % (0-1); Eosinophils Percent Manual 0 % (1-6); Lymphocytes Absolute Manual 1.33 K/mm3 (1.1-4.5); Lymphocytes Percent Manual 7 % (18-44); Metamyelocytes Percent 2 %; Monocytes Absolute Manual 1.52 K/mm3 (0.1-0.90); Monocytes Percent Manual 8 % (3-9); Myelocytes Percent 1 %; Neutrophils Absolute Manual 15.66 K/mm3 (1.7-7.2); Neutrophils Percent Manual 80 % (46-73); Platelet Estimate Decreased (Adequate); Total Cells Counted 100
[2023-06-03 10:43] LABS: Alanine Aminotransferase 20 U/L (14-59); Albumin Level 3.6 g/dL (3.4-5.0); Alkaline Phosphatase 107 U/L (46-116); Anion Gap 9 mmol/L (8-16); Aspartate Amino Transferase 21 U/L (15-37); Bilirubin,Total 0.5 mg/dL (0.00-1.00); Blood Urea Nitrogen 14 mg/dL (7-18); Calcium 9.2 mg/dL (8.5-10.1); Carbon Dioxide 31 mmol/L (21-32); Chloride 101 mmol/L (98-108); Estimated Glomerular Filt Rate > 60; Glucose 199 mg/dL (70-99); Osmolality Calculated 298 mOsm/kg (285-295); Potassium 4.2 mmol/L (3.5-5.1); Sodium 141 mmol/L (136-145)
[2023-06-17 08:27] LABS: Hematocrit 36.3 % (35.0-42.0); Mean Corpuscular HGB Conc 30.3 g/dL (32-36); Mean Corpuscular Hemoglobin 29.2 pg (27.0-31.0); Mean Corpuscular Volume 96.3 fL (78.0-102.0); Mean Platelet Volume 9.8 fl (9.2-11.8); Platelet Count Result 119 K/mm3 (150-420); Red Blood Count 3.77 M/mm3 (4.20-5.40); Red Cell Distribution Width 14.5 % (11.6-14.4); White Blood Count 15.6 K/mm3 (4.8-10.8)
[2023-06-17 08:49] LABS: Band Neutrophils Percent 1 % (0-6); Lymphocytes Absolute Manual 3.12 K/mm3 (1.1-4.5); Lymphocytes Percent Manual 20 % (18-44); Metamyelocytes Percent 3 %; Monocytes Absolute Manual 1.24 K/mm3 (0.1-0.90); Monocytes Percent Manual 8 % (3-9); Neutrophils Absolute Manual 10.45 K/mm3 (1.7-7.2); Neutrophils Percent Manual 66 % (46-73); Total Cells Counted 100
[2023-06-17 08:50] LABS: Myelocytes Percent 2 %; Nucleated Red Blood Cells 1 %; Platelet Estimate Adequate (Adequate)
[2023-06-17 09:15] LABS: Alanine Aminotransferase 20 U/L (14-59); Albumin Level 3.3 g/dL (3.4-5.0); Alkaline Phosphatase 99 U/L (46-116); Anion Gap 11 mmol/L (8-16); Aspartate Amino Transferase < 10 U/L (15-37); Bilirubin,Total 0.3 mg/dL (0.00-1.00); Blood Urea Nitrogen 18 mg/dL (7-18); Carbon Dioxide 28 mmol/L (21-32); Chloride 105 mmol/L (98-108); Estimated Glomerular Filt Rate > 60; Glucose 189 mg/dL (70-99); Osmolality Calculated 304 mOsm/kg (285-295); Potassium 4.1 mmol/L (3.5-5.1); Sodium 144 mmol/L (136-145); Total Protein 6.5 g/dL (6.4-8.2)
[2023-07-01 12:45] LABS: NT Pro B Type Natriuretic Pept 173 pg/mL (0-125); Troponin I 14.1 ng/L (0.00-60.4)
[2023-07-01 14:34] LABS: Hematocrit 31.4 % (35.0-42.0); Hemoglobin 9.4 g/dL (11.7-13.8); Immature Platelet Fraction Pct 2.6 % (1.0-7.0); Mean Corpuscular HGB Conc 29.9 g/dL (32-36); Mean Corpuscular Hemoglobin 28.5 pg (27.0-31.0); Mean Corpuscular Volume 95.2 fL (78.0-102.0); Platelet Count Result 100 K/mm3 (150-420); Red Cell Distribution Width 16.5 % (11.6-14.4); White Blood Count 16.4 K/mm3 (4.8-10.8)
[2023-07-01 14:41] LABS: Alanine Aminotransferase 23 U/L (14-59); Albumin Level 3.4 g/dL (3.4-5.0); Alkaline Phosphatase 103 U/L (46-116); Anion Gap 11 mmol/L (4-12); Aspartate Amino Transferase 16 U/L (15-37); Bilirubin,Total 0.4 mg/dL (0.00-1.00); Blood Urea Nitrogen 17 mg/dL (7-18); Calcium 8.8 mg/dL (8.5-10.1); Carbon Dioxide 29 mmol/L (21-32); Chloride 104 mmol/L (98-108); Estimated Glomerular Filt Rate > 60; Glucose 200 mg/dL (70-99); Osmolality Calculated 305 mOsm/kg (285-295); Potassium 4.1 mmol/L (3.5-5.1); Sodium 144 mmol/L (136-145); Total Protein 6.8 g/dL (6.4-8.2)
[2023-07-01 15:14] LABS: Band Neutrophils Percent 1 % (0-6); Basophils Percent Manual 0 % (0-1); Eosinophils Absolute Manual 0.16 K/mm3 (0.02-0.50); Eosinophils Percent Manual 1 % (1-6); Lymphocytes Absolute Manual 2.46 K/mm3 (1.1-4.5); Lymphocytes Percent Manual 15 % (18-44); Metamyelocytes Percent 3 %; Monocytes Absolute Manual 0.98 K/mm3 (0.1-0.90); Monocytes Percent Manual 6 % (3-9); Myelocytes Percent 2 %; Neutrophils Absolute Manual 11.97 K/mm3 (1.7-7.2); Neutrophils Percent Manual 72 % (46-73); Total Cells Counted 100
[2023-07-01 15:15] LABS: Platelet Estimate Decreased (Adequate)
[2023-07-08 08:06] LABS: Basophils Absolute Auto 0.05 K/mm3 (0.00-0.10); Basophils Percent Auto 0.8 % (0.0-1.0); Hematocrit 31.4 % (35.0-42.0); Hemoglobin 9.8 g/dL (11.7-13.8); Immature Granulocyte Absolute 0.13 K/mm3 (0.00-0.00); Lymphocytes Absolute Auto 1.08 K/mm3 (1.10-4.50); Lymphocytes Percent Auto 16.6 % (18.0-42.0); Mean Corpuscular HGB Conc 31.2 g/dL (32-36); Mean Corpuscular Hemoglobin 29.2 pg (27.0-31.0); Mean Corpuscular Volume 93.5 fL (78.0-102.0); Mean Platelet Volume 9.3 fl (9.2-11.8); Monocytes Absolute Auto 0.39 K/mm3 (0.10-0.90); Neutrophils Absolute Auto 4.84 K/mm3 (1.70-7.20); Neutrophils Percent Auto 74.6 % (50.0-70.0); Platelet Count Result 185 K/mm3 (150-420); Red Blood Count 3.36 M/mm3 (4.20-5.40); Red Cell Distribution Width 16.7 % (11.6-14.4); White Blood Count 6.5 K/mm3 (4.8-10.8)
[2023-07-08 09:02] LABS: Alanine Aminotransferase 16 U/L (14-59); Albumin Level 3.5 g/dL (3.4-5.0); Alkaline Phosphatase 67 U/L (46-116); Anion Gap 7 mmol/L (4-12); Aspartate Amino Transferase 19 U/L (15-37); Bilirubin,Total 0.6 mg/dL (0.00-1.00); Blood Urea Nitrogen 18 mg/dL (7-18); Calcium 9.1 mg/dL (8.5-10.1); Carbon Dioxide 31 mmol/L (21-32); Chloride 106 mmol/L (98-108); Estimated Glomerular Filt Rate > 60; Glucose 155 mg/dL (70-99); Osmolality Calculated 302 mOsm/kg (285-295); Potassium 4.7 mmol/L (3.5-5.1); Sodium 144 mmol/L (136-145); Total Protein 6.5 g/dL (6.4-8.2)
== END 2023-09-01 23:59 | disposition home or self-care (01) ==
LOC: CHSLAB 07:52
PROVIDERS: PCP Family Medicine; Visit Provider Internal Medicine Hematology
DX: C50.111 Malignant neoplasm of central portion of right female breast (principal)
CPT/HCPCS: 36415; 80053; 83880; 84484; 85025; 85055

== ENCOUNTER 2023-07-09 10:05 | Emergency (ER) | payer OTHER, MEDICARE, SELFPAY ==
[2023-07-09] VITALS (25 sets, daily range): BP systolic 118–137; BP diastolic 54–75; PULSE 89–96; RESP 18–20; TEMP 35.6; O2SAT 94–99
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
--- NOTE | 2023-07-09 11:20 | PC.NURSE ---
pt is resting on stretcher with c collar in place. vss per monitor. pt denies any needs or complaints. pt is awaiting results. will continue to monitor.
--- NOTE | 2023-07-09 11:52 | PC.NURSE ---
c collar removed as erp cleared c spine. will continue to monitor. pt denies any needs or complaints.
[2023-07-09 12:38] LABS: Hematocrit 31.7 % (35.0-42.0); Hemoglobin 9.7 g/dL (11.7-13.8); Mean Corpuscular HGB Conc 30.6 g/dL (32-36); Mean Corpuscular Hemoglobin 29.5 pg (27.0-31.0); Mean Corpuscular Volume 96.4 fL (78.0-102.0); Mean Platelet Volume 9.4 fl (9.2-11.8); Platelet Count Result 212 K/mm3 (150-420); Red Blood Count 3.29 M/mm3 (4.20-5.40); Red Cell Distribution Width 17.2 % (11.6-14.4)
--- NOTE | 2023-07-09 12:38 | PC.NURSE ---
PT IS REPORTING PAIN WHEN MOVING HER LEGS TO HER LEFT HIP AREA. ERP IS AWARE. PT HAS RETURNED TO CT FOR FURTHER IMAGING. WILL CONTINUE TO MONITOR.
[2023-07-09 12:41] LABS: White Blood Count 24.5 K/mm3 (4.8-10.8)
--- NOTE | 2023-07-09 12:42 | PC.NURSE ---
Critical lab result of 24.3 WBC. ERP notified.
[2023-07-09 12:46] LABS: Band Neutrophils Percent 0 % (0-6); Basophils Percent Manual 0 % (0-1); Eosinophils Percent Manual 0 % (1-6); Lymphocytes Absolute Manual 1.71 K/mm3 (1.1-4.5); Lymphocytes Percent Manual 7 % (18-44); Metamyelocytes Percent 2 %; Monocytes Absolute Manual 1.71 K/mm3 (0.1-0.90); Monocytes Percent Manual 7 % (3-9); Neutrophils Absolute Manual 20.58 K/mm3 (1.7-7.2); Neutrophils Percent Manual 84 % (46-73); Platelet Estimate Adequate (Adequate); Total Cells Counted 100
[2023-07-09 12:52] LABS: Partial Thromboplastin Time 20.8 Sec (23.9-30.70); Prothrombin Time 11.4 Seconds (9.50-12.1)
[2023-07-09 12:54] LABS: Alanine Aminotransferase 37 U/L (14-59); Albumin Level 3.4 g/dL (3.4-5.0); Alkaline Phosphatase 68 U/L (46-116); Anion Gap 12 mmol/L (4-12); Aspartate Amino Transferase 54 U/L (15-37); Bilirubin,Total 0.6 mg/dL (0.00-1.00); Blood Urea Nitrogen 22 mg/dL (7-18); Carbon Dioxide 22 mmol/L (21-32); Chloride 106 mmol/L (98-108); Estimated CRCL calculation 77 ml/min; Estimated Glomerular Filt Rate > 60; Glucose 216 mg/dL (70-99); Osmolality Calculated 300 mOsm/kg (285-295); Potassium 4.2 mmol/L (3.5-5.1); Sodium 140 mmol/L (136-145); Total Protein 6.7 g/dL (6.4-8.2)
[2023-07-09] MEDS: TETANUS,DIPHTHERIA,AC PERTUSSIS ADULT 0.5 ML (ADACEL) IM (13:10)
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
--- NOTE | 2023-07-09 14:30 | PC.NURSE ---
SHEET TIED AROUND PT'S WAIST PER V/O BY DR LYNCH. PT TOLERATED WELL.
== END 2023-07-09 14:30 | disposition short-term general hospital (02) ==
PROVIDERS: Emergency Provider Emergency Medicine; PCP Family Medicine
DX: S32.302A Unspecified fracture of left ilium, initial encounter for closed fracture (principal); S32.10XA Unspecified fracture of sacrum, initial encounter for closed fracture; S32.592A Other specified fracture of left pubis, initial encounter for closed fracture; S32.591A Other specified fracture of right pubis, initial encounter for closed fracture; S32.502A Unspecified fracture of left pubis, initial encounter for closed fracture; S32.029A Unspecified fracture of second lumbar vertebra, initial encounter for closed fracture; S32.039A Unspecified fracture of third lumbar vertebra, initial encounter for closed fracture; D72.829 Elevated white blood cell count, unspecified; V49.40XA Driver injured in collision with unspecified motor vehicles in traffic accident, initial encounter; C50.919 Malignant neoplasm of unspecified site of unspecified female breast; E11.9 Type 2 diabetes mellitus without complications; I10 Essential (primary) hypertension; E78.5 Hyperlipidemia, unspecified; Z86.73 Personal history of transient ischemic attack (TIA), and cerebral infarction without residual deficits; E66.9 Obesity, unspecified; Z68.30 Body mass index [BMI] 30.0-30.9, adult; M47.816 Spondylosis without myelopathy or radiculopathy, lumbar region; M47.814 Spondylosis without myelopathy or radiculopathy, thoracic region; Z79.85 Long-term (current) use of injectable non-insulin antidiabetic drugs; Z79.84 Long term (current) use of oral hypoglycemic drugs; Z79.4 Long term (current) use of insulin; Z79.899 Other long term (current) drug therapy; Z23 Encounter for immunization
CPT/HCPCS: 36415; 70450; 71045; 71260; 72125; 72128; 72131; 72192; 74177; 80053; 85025; 85610; 85730; 90471; 90715; 99285; Q9967

== ENCOUNTER 2023-07-12 14:34 | Inpatient (IN) | payer MEDICARE, SELFPAY ==
--- NOTE | ~2023-07-12 | XR_ITS ---
AP views of the pelvis CLINICAL HISTORY: Fracture FINDINGS: There is acute fracture of the left inferior pubic ramus. Questionable nondisplaced fractur e the junction of the superior left pubic ramus with the anterior left acetabulum. No femoral neck fr acture seen. Bilateral hip joints appear intact. There is mild bilateral SI joint degenerative change . Soft tissues are unremarkable. IMPRESSION: Acute left inferior pubic mass fracture. Questionable nondisplaced fracture at the junction of the left superior pubic ramus and the anterior acetabulum. Consider CT scan to further evaluate for fracture in this region as indicated. Reviewed, dictated and finalized at location . IMPRESSION: Acute left inferior pubic mass fracture. Questionable nondisplaced fracture at the junction of the left superior pubic r amus and the anterior acetabulum. Consider CT scan to further evaluate for frac ture in this region as indicated.
--- NOTE | 2023-07-12 15:30 | ADMGEN ---
This patient, Teo Avendano, was admitted to 2nd Floor Room 210-1. Patient/family oriented to hospital policies and general routines including ID bracelet, bed and alarms, visiting hours, pain management, procedures, bathroom and other care routines, personal items, smoking policy, room service/diet, and visiting hours. Pt has phone,no switch maker, glasses and lower partial Information on how to activate the Rapid Response Team has been discussed. Patient/Family are encouraged to report perceived risks to care and to ask questions if they do not understand what they are told or what they should do.
[2023-07-12 15:43] VITALS: BMI 30.5
[2023-07-12 16:18] VITALS: BMI 30.5
[2023-07-12 16:22] VITALS: BP 152/62; PULSE 78; RESP 16; TEMP 36.3; O2SAT 96
[2023-07-12 16:37] LABS: Glucose Point of Care 137 mg/dl (65-105)
[2023-07-12] MEDS: LATANOPROST 0.005% OP SOLN 2.5 ML BTL 1 DROP EACH EYE (20:40)
[2023-07-12] MEDS: INSULIN GLARGINE (*BKC) 1,000 UNITS/10 ML VIAL 15 UNITS SUB-Q (20:40)
[2023-07-12 20:41] VITALS: PULSE 78
[2023-07-12 20:41] LABS: Glucose Point of Care 199 mg/dl (65-105)
[2023-07-12] MEDS: METOPROLOL TARTRATE 50 MG TAB 100 MG PO (20:41)
[2023-07-12] MEDS: oxyCODONE HCL (*CRX) 5 MG TAB IR PO (20:42)
[2023-07-12] MEDS: ATORVASTATIN 40 MG TABLET PO (20:42)
[2023-07-12] MEDS: ENOXAPARIN 30 MG/0.3 ML SYRINGE SUB-Q (20:43)
[2023-07-13] VITALS: BP 117/61; PULSE 87; RESP 16; TEMP 36.2; O2SAT 96
[2023-07-13 08:00] VITALS: BP 160/64; PULSE 93; RESP 18; TEMP 36.2; O2SAT 95
[2023-07-13 08:22] LABS: Glucose Point of Care 178 mg/dl (65-105)
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
[2023-07-13] MEDS: oxyCODONE HCL (*CRX) 5 MG TAB IR PO (08:37)
[2023-07-13] MEDS: LIDOCAINE 5% PATCH 1 PATCH TRANSDERM (09:04)
[2023-07-13 09:05] VITALS: PULSE 92
[2023-07-13] MEDS: ENOXAPARIN 30 MG/0.3 ML SYRINGE SUB-Q ×2 (09:05→21:19)
[2023-07-13] MEDS: LORATADINE 10 MG TABLET PO (09:05)
[2023-07-13] MEDS: METOPROLOL TARTRATE 50 MG TAB 100 MG PO ×2 (09:05→21:17)
[2023-07-13] MEDS: LOSARTAN POTASSIUM 25 MG TABLET PO (09:05)
[2023-07-13 12:15] LABS: Glucose Point of Care 193 mg/dl (65-105)
[2023-07-13] MEDS: ORPHENADRINE CITRATE 100 MG TABLET.ER PO ×2 (15:15→21:21)
[2023-07-13] MEDS: DORZOLAMIDE/TIMOLOL OPHTH SOL 10 ML BOTTLE 1 DROP RIGHT EYE ×2 (15:15→19:20)
[2023-07-13 16:00] VITALS: BP 155/62; PULSE 90; RESP 18; TEMP 36.6; O2SAT 96
[2023-07-13 17:08] LABS: Glucose Point of Care 148 mg/dl (65-105)
[2023-07-13] MEDS: ACETAMINOPHEN 325 MG TABLET 650 MG PO (21:15)
[2023-07-13 21:17] VITALS: PULSE 93
[2023-07-13] MEDS: ATORVASTATIN 40 MG TABLET PO (21:19)
[2023-07-13] MEDS: INSULIN GLARGINE (*BKC) 1,000 UNITS/10 ML VIAL 15 UNITS SUB-Q (21:20)
[2023-07-13] MEDS: LATANOPROST 0.005% OP SOLN 2.5 ML BTL 1 DROP EACH EYE (21:21)
[2023-07-13 21:35] LABS: Glucose Point of Care 211 mg/dl (65-105)
[2023-07-14] VITALS: BP 137/52; PULSE 90; RESP 16; TEMP 36.3; O2SAT 95
[2023-07-14] MEDS: oxyCODONE HCL (*CRX) 5 MG TAB IR PO ×2 (00:52→12:53)
[2023-07-14] MEDS: ACETAMINOPHEN 325 MG TABLET 650 MG PO ×2 (07:00→19:39)
[2023-07-14 07:31] LABS: Glucose Point of Care 162 mg/dl (65-105)
[2023-07-14 08:00] VITALS: BP 126/57; PULSE 78; RESP 18; RESP 20; TEMP 36; O2SAT 96; O2SAT 97
[2023-07-14] MEDS: LIDOCAINE 5% PATCH 1 PATCH TRANSDERM (08:30)
[2023-07-14] MEDS: ENOXAPARIN 30 MG/0.3 ML SYRINGE SUB-Q ×2 (08:32→21:10)
[2023-07-14 08:33] VITALS: PULSE 72
[2023-07-14] MEDS: LORATADINE 10 MG TABLET PO (08:33)
[2023-07-14] MEDS: METOPROLOL TARTRATE 50 MG TAB 100 MG PO ×2 (08:33→21:12)
[2023-07-14] MEDS: LOSARTAN POTASSIUM 25 MG TABLET PO (08:34)
[2023-07-14] MEDS: DOCUSATE SODIUM 100 MG CAPSULE PO (08:34)
[2023-07-14] MEDS: DORZOLAMIDE/TIMOLOL OPHTH SOL 10 ML BOTTLE 1 DROP RIGHT EYE ×2 (08:36→17:20)
[2023-07-14] MEDS: ORPHENADRINE CITRATE 100 MG TABLET.ER PO ×2 (08:37→21:11)
--- NOTE | 2023-07-14 10:09 | PHAR ---
RN states home med Magnesium Chloride 64mg is in a prescription bottle and pills are marked Mag 64.
[2023-07-14 11:53] LABS: Glucose Point of Care 221 mg/dl (65-105)
[2023-07-14] MEDS: INSULIN HUMAN LISPRO (*BKC) 1,000 UNITS/10 ML VIAL SUB-Q (12:10)
[2023-07-14 14:20] LABS: Hemoglobin 10.2 g/dL (11.7-13.8); Mean Corpuscular HGB Conc 30.9 g/dL (32-36); Mean Corpuscular Hemoglobin 29.7 pg (27.0-31.0); Mean Corpuscular Volume 96.2 fL (78.0-102.0); Mean Platelet Volume 9.4 fl (9.2-11.8); Platelet Count Result 134 K/mm3 (150-420); Red Blood Count 3.43 M/mm3 (4.20-5.40); Red Cell Distribution Width 18.1 % (11.6-14.4); White Blood Count 8.5 K/mm3 (4.8-10.8)
[2023-07-14 14:50] LABS: Albumin Level 2.8 g/dL (3.4-5.0); Anion Gap 6 mmol/L (4-12); Blood Urea Nitrogen 26 mg/dL (7-18); Calcium 8.2 mg/dL (8.5-10.1); Carbon Dioxide 31 mmol/L (21-32); Chloride 104 mmol/L (98-108); Estimated CRCL calculation 83 ml/min; Estimated Glomerular Filt Rate > 60; Glucose 199 mg/dL (70-99); Magnesium 1.7 mg/dL (1.8-2.4); Osmolality Calculated 302 mOsm/kg (285-295); Phosphorus 3.3 mg/dL (2.6-4.7); Sodium 141 mmol/L (136-145)
[2023-07-14 16:00] VITALS: BP 130/58; PULSE 78; RESP 18; TEMP 36.6; O2SAT 95
[2023-07-14 17:04] LABS: Glucose Point of Care 142 mg/dl (65-105)
[2023-07-14] MEDS: LATANOPROST 0.005% OP SOLN 2.5 ML BTL 1 DROP EACH EYE (21:11)
[2023-07-14] MEDS: ATORVASTATIN 40 MG TABLET PO (21:11)
[2023-07-14 21:12] VITALS: PULSE 81
[2023-07-14 21:25] LABS: Glucose Point of Care 145 mg/dl (65-105)
[2023-07-14] MEDS: INSULIN GLARGINE (*BKC) 1,000 UNITS/10 ML VIAL 15 UNITS SUB-Q (21:25)
[2023-07-15] VITALS: BP 128/63; PULSE 78; RESP 18; TEMP 36.2; O2SAT 97
[2023-07-15] MEDS: oxyCODONE HCL (*CRX) 5 MG TAB IR PO ×4 (04:17→19:12)
[2023-07-15 08:00] VITALS: BP 118/53; PULSE 80; RESP 18; TEMP 35.7; O2SAT 96
[2023-07-15 08:09] LABS: Glucose Point of Care 145 mg/dl (65-105)
[2023-07-15] MEDS: ACETAMINOPHEN 325 MG TABLET 650 MG PO (09:09)
[2023-07-15] MEDS: ORPHENADRINE CITRATE 100 MG TABLET.ER PO ×2 (09:10→20:57)
[2023-07-15 09:11] VITALS: PULSE 89
[2023-07-15] MEDS: LOSARTAN POTASSIUM 25 MG TABLET PO (09:11)
[2023-07-15] MEDS: METOPROLOL TARTRATE 50 MG TAB 100 MG PO ×2 (09:11→20:57)
[2023-07-15] MEDS: DORZOLAMIDE/TIMOLOL OPHTH SOL 10 ML BOTTLE 1 DROP RIGHT EYE ×2 (09:11→17:56)
[2023-07-15] MEDS: LORATADINE 10 MG TABLET PO (09:11)
[2023-07-15] MEDS: ENOXAPARIN 30 MG/0.3 ML SYRINGE SUB-Q ×2 (09:11→21:00)
[2023-07-15] MEDS: LIDOCAINE 5% PATCH 1 PATCH TRANSDERM (09:12)
--- NOTE | 2023-07-15 11:20 | PHAR ---
VERIFIED PT.'S HOME MED MAGNESIUM CHLORIDE 64MG DR TABLET, 1 PO DAILY.
[2023-07-15 12:06] LABS: Glucose Point of Care 167 mg/dl (65-105)
[2023-07-15 16:00] VITALS: BP 113/56; PULSE 78; RESP 18; TEMP 35.7; O2SAT 97
[2023-07-15 16:57] LABS: Glucose Point of Care 141 mg/dl (65-105)
[2023-07-15 20:00] VITALS: PULSE 76; RESP 18; O2SAT 97
[2023-07-15 20:57] VITALS: PULSE 76
[2023-07-15] MEDS: LATANOPROST 0.005% OP SOLN 2.5 ML BTL 1 DROP EACH EYE (20:57)
[2023-07-15] MEDS: ATORVASTATIN 40 MG TABLET PO (21:00)
[2023-07-15 21:14] LABS: Glucose Point of Care 167 mg/dl (65-105)
[2023-07-15] MEDS: INSULIN GLARGINE (*BKC) 1,000 UNITS/10 ML VIAL 15 UNITS SUB-Q (21:23)
[2023-07-16] VITALS: BP 123/55; PULSE 78; RESP 16; TEMP 36.3; O2SAT 96
[2023-07-16] MEDS: oxyCODONE HCL (*CRX) 5 MG TAB IR PO ×4 (03:27→19:25)
[2023-07-16 07:50] LABS: Glucose Point of Care 128 mg/dl (65-105)
[2023-07-16 08:00] VITALS: BP 116/56; PULSE 79; RESP 17; TEMP 35.7; O2SAT 96
[2023-07-16] MEDS: ENOXAPARIN 30 MG/0.3 ML SYRINGE SUB-Q ×2 (09:03→21:56)
[2023-07-16] MEDS: LIDOCAINE 5% PATCH 1 PATCH TRANSDERM (09:03)
[2023-07-16 09:04] VITALS: PULSE 79
[2023-07-16] MEDS: DORZOLAMIDE/TIMOLOL OPHTH SOL 10 ML BOTTLE 1 DROP RIGHT EYE ×2 (09:04→17:34)
[2023-07-16] MEDS: METOPROLOL TARTRATE 50 MG TAB 100 MG PO ×2 (09:04→21:56)
[2023-07-16] MEDS: LOSARTAN POTASSIUM 25 MG TABLET PO (09:04)
[2023-07-16] MEDS: LORATADINE 10 MG TABLET PO (09:04)
[2023-07-16] MEDS: ORPHENADRINE CITRATE 100 MG TABLET.ER PO ×2 (09:04→21:56)
[2023-07-16 11:53] LABS: Glucose Point of Care 162 mg/dl (65-105)
[2023-07-16 16:00] VITALS: BP 140/71; PULSE 77; RESP 16; TEMP 36.8; O2SAT 97
[2023-07-16 16:58] LABS: Glucose Point of Care 126 mg/dl (65-105)
[2023-07-16] MEDS: LATANOPROST 0.005% OP SOLN 2.5 ML BTL 1 DROP EACH EYE (21:56)
[2023-07-16] MEDS: ATORVASTATIN 40 MG TABLET PO (21:56)
[2023-07-16] MEDS: INSULIN GLARGINE (*BKC) 1,000 UNITS/10 ML VIAL 15 UNITS SUB-Q (21:56)
[2023-07-16 22:09] LABS: Glucose Point of Care 175 mg/dl (65-105)
[2023-07-17] VITALS: BP 149/56; PULSE 84; RESP 19; TEMP 36.1; O2SAT 94
[2023-07-17] MEDS: oxyCODONE HCL (*CRX) 5 MG TAB IR PO ×6 (00:03→23:26)
[2023-07-17 08:00] VITALS: BP 128/55; PULSE 79; RESP 15; TEMP 35.8; O2SAT 97
[2023-07-17 08:02] LABS: Glucose Point of Care 154 mg/dl (65-105)
[2023-07-17] MEDS: LIDOCAINE 5% PATCH 1 PATCH TRANSDERM (09:06)
[2023-07-17 09:07] VITALS: PULSE 79
[2023-07-17] MEDS: ENOXAPARIN 30 MG/0.3 ML SYRINGE SUB-Q ×2 (09:07→21:17)
[2023-07-17] MEDS: METOPROLOL TARTRATE 50 MG TAB 100 MG PO ×2 (09:07→21:18)
[2023-07-17] MEDS: LOSARTAN POTASSIUM 25 MG TABLET PO (09:07)
[2023-07-17] MEDS: ORPHENADRINE CITRATE 100 MG TABLET.ER PO ×2 (09:07→21:18)
[2023-07-17] MEDS: LORATADINE 10 MG TABLET PO (09:08)
[2023-07-17] MEDS: DORZOLAMIDE/TIMOLOL OPHTH SOL 10 ML BOTTLE 1 DROP RIGHT EYE ×2 (09:08→17:40)
[2023-07-17 12:04] LABS: Glucose Point of Care 175 mg/dl (65-105)
[2023-07-17 16:00] VITALS: BP 121/60; PULSE 87; RESP 17; TEMP 36.2; O2SAT 98
[2023-07-17 16:53] LABS: Glucose Point of Care 161 mg/dl (65-105)
[2023-07-17] MEDS: ACETAMINOPHEN 325 MG TABLET 650 MG PO (19:54)
[2023-07-17 20:00] VITALS: PULSE 80; RESP 16; O2SAT 94
[2023-07-17 21:18] VITALS: PULSE 82
[2023-07-17] MEDS: ATORVASTATIN 40 MG TABLET PO (21:18)
[2023-07-17] MEDS: LATANOPROST 0.005% OP SOLN 2.5 ML BTL 1 DROP EACH EYE (21:18)
[2023-07-17 21:22] LABS: Glucose Point of Care 196 mg/dl (65-105)
[2023-07-17] MEDS: INSULIN GLARGINE (*BKC) 1,000 UNITS/10 ML VIAL 15 UNITS SUB-Q (21:23)
[2023-07-18] VITALS: BP 127/59; PULSE 80; RESP 16; TEMP 36.6; O2SAT 95
[2023-07-18] MEDS: oxyCODONE HCL (*CRX) 5 MG TAB IR PO ×3 (07:25→20:19)
[2023-07-18 07:55] LABS: Glucose Point of Care 151 mg/dl (65-105)
[2023-07-18 08:00] VITALS: BP 118/58; PULSE 78; RESP 16; TEMP 35.7; O2SAT 96
[2023-07-18] MEDS: DORZOLAMIDE/TIMOLOL OPHTH SOL 10 ML BOTTLE 1 DROP RIGHT EYE ×2 (08:44→17:01)
[2023-07-18] MEDS: ENOXAPARIN 30 MG/0.3 ML SYRINGE SUB-Q ×2 (08:46→20:18)
[2023-07-18] MEDS: LOSARTAN POTASSIUM 25 MG TABLET PO (08:47)
[2023-07-18] MEDS: ORPHENADRINE CITRATE 100 MG TABLET.ER PO ×2 (08:47→20:19)
[2023-07-18] MEDS: DOCUSATE SODIUM 100 MG CAPSULE PO (08:47)
[2023-07-18] MEDS: LORATADINE 10 MG TABLET PO (08:48)
[2023-07-18] MEDS: METOPROLOL TARTRATE 50 MG TAB 100 MG PO ×2 (08:48→20:21)
[2023-07-18] MEDS: LIDOCAINE 5% PATCH 1 PATCH TRANSDERM (08:49)
[2023-07-18] MEDS: MAGNESIUM CHLORIDE 64 MG TABLET PO (09:19)
--- NOTE | 2023-07-18 11:16 | PC.NURSE ---
Patient complained of gum pain on L side in front. [facility] observed swelling in gum around tooth. [employer] made aware of possible abscess
[2023-07-18 11:40] LABS: Glucose Point of Care 161 mg/dl (65-105)
[2023-07-18 16:00] VITALS: BP 140/67; PULSE 84; RESP 16; TEMP 36.3; O2SAT 93
[2023-07-18 16:43] LABS: Glucose Point of Care 134 mg/dl (65-105)
[2023-07-18] MEDS: ACETAMINOPHEN 325 MG TABLET 650 MG PO (17:07)
[2023-07-18 20:00] VITALS: PULSE 82; RESP 16; O2SAT 96
[2023-07-18] MEDS: LATANOPROST 0.005% OP SOLN 2.5 ML BTL 1 DROP EACH EYE (20:18)
[2023-07-18] MEDS: AMOXICILLIN 500 MG CAPSULE PO (20:19)
[2023-07-18] MEDS: ATORVASTATIN 40 MG TABLET PO (20:19)
[2023-07-18 20:21] VITALS: PULSE 84
[2023-07-18 20:36] LABS: Glucose Point of Care 187 mg/dl (65-105)
[2023-07-18] MEDS: INSULIN GLARGINE (*BKC) 1,000 UNITS/10 ML VIAL 15 UNITS SUB-Q (20:37)
[2023-07-18 23:56] VITALS: BP 129/60; PULSE 81; RESP 16; TEMP 36.2; O2SAT 96
[2023-07-19] MEDS: oxyCODONE HCL (*CRX) 5 MG TAB IR PO ×4 (03:15→20:30)
[2023-07-19 05:44] LABS: Hematocrit 31.3 % (35.0-42.0); Hemoglobin 9.7 g/dL (11.7-13.8); Mean Corpuscular Hemoglobin 29.3 pg (27.0-31.0); Mean Corpuscular Volume 94.6 fL (78.0-102.0); Mean Platelet Volume 9.2 fl (9.2-11.8); Platelet Count Result 133 K/mm3 (150-420); Red Blood Count 3.31 M/mm3 (4.20-5.40); Red Cell Distribution Width 17.2 % (11.6-14.4); White Blood Count 7.9 K/mm3 (4.8-10.8)
[2023-07-19 05:56] LABS: Anion Gap 8 mmol/L (4-12); Blood Urea Nitrogen 13 mg/dL (7-18); Calcium 8.2 mg/dL (8.5-10.1); Carbon Dioxide 29 mmol/L (21-32); Chloride 103 mmol/L (98-108); Estimated CRCL calculation 102 ml/min; Estimated Glomerular Filt Rate > 60; Glucose 150 mg/dL (70-99); Osmolality Calculated 293 mOsm/kg (285-295); Sodium 140 mmol/L (136-145)
[2023-07-19 08:00] VITALS: BP 121/63; PULSE 78; RESP 16; TEMP 35.9; O2SAT 97
[2023-07-19] MEDS: ENOXAPARIN 30 MG/0.3 ML SYRINGE SUB-Q ×2 (08:53→20:32)
[2023-07-19] MEDS: LIDOCAINE 5% PATCH 1 PATCH TRANSDERM (08:54)
[2023-07-19] MEDS: DORZOLAMIDE/TIMOLOL OPHTH SOL 10 ML BOTTLE 1 DROP RIGHT EYE ×2 (08:54→17:23)
[2023-07-19] MEDS: MAGNESIUM CHLORIDE 64 MG TABLET PO (08:56)
[2023-07-19] MEDS: LOSARTAN POTASSIUM 25 MG TABLET PO (08:57)
[2023-07-19] MEDS: LORATADINE 10 MG TABLET PO (08:57)
[2023-07-19] MEDS: ORPHENADRINE CITRATE 100 MG TABLET.ER PO ×2 (08:57→20:46)
[2023-07-19 08:58] VITALS: PULSE 78
[2023-07-19] MEDS: AMOXICILLIN 500 MG CAPSULE PO ×2 (08:58→20:32)
[2023-07-19] MEDS: METOPROLOL TARTRATE 50 MG TAB 100 MG PO ×2 (08:58→20:45)
[2023-07-19 16:00] VITALS: BP 122/64; PULSE 83; RESP 18; TEMP 36; O2SAT 97
[2023-07-19 16:29] LABS: Glucose Point of Care 156 mg/dl (65-105)
[2023-07-19 16:49] LABS: Glucose Point of Care 118 mg/dl (65-105)
[2023-07-19 20:00] VITALS: PULSE 70; RESP 18; O2SAT 95
[2023-07-19] MEDS: LATANOPROST 0.005% OP SOLN 2.5 ML BTL 1 DROP EACH EYE (20:32)
[2023-07-19] MEDS: ATORVASTATIN 40 MG TABLET PO (20:32)
[2023-07-19] MEDS: INSULIN GLARGINE (*BKC) 1,000 UNITS/10 ML VIAL 15 UNITS SUB-Q (20:44)
[2023-07-19 20:45] VITALS: PULSE 70
[2023-07-20] VITALS: BP 147/63; PULSE 81; RESP 18; TEMP 36.1; O2SAT 96
[2023-07-20] MEDS: oxyCODONE HCL (*CRX) 5 MG TAB IR PO ×5 (00:44→20:16)
[2023-07-20 08:00] VITALS: BP 117/54; PULSE 79; TEMP 36.6; O2SAT 96
[2023-07-20] MEDS: LIDOCAINE 5% PATCH 1 PATCH TRANSDERM (09:05)
[2023-07-20] MEDS: DORZOLAMIDE/TIMOLOL OPHTH SOL 10 ML BOTTLE 1 DROP RIGHT EYE ×2 (09:05→18:03)
[2023-07-20 09:06] VITALS: PULSE 79
[2023-07-20] MEDS: ENOXAPARIN 30 MG/0.3 ML SYRINGE SUB-Q ×2 (09:06→20:16)
[2023-07-20] MEDS: AMOXICILLIN 500 MG CAPSULE PO ×2 (09:06→20:15)
[2023-07-20] MEDS: MAGNESIUM CHLORIDE 64 MG TABLET PO (09:06)
[2023-07-20] MEDS: METOPROLOL TARTRATE 50 MG TAB 100 MG PO ×2 (09:06→20:14)
[2023-07-20] MEDS: ORPHENADRINE CITRATE 100 MG TABLET.ER PO ×2 (09:07→20:14)
[2023-07-20] MEDS: LOSARTAN POTASSIUM 25 MG TABLET PO (09:07)
[2023-07-20] MEDS: LORATADINE 10 MG TABLET PO (09:07)
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
[2023-07-20 10:01] LABS: Magnesium 1.7 mg/dL (1.8-2.4)
[2023-07-20 10:06] LABS: Hemoglobin A1C 6.7 % (<5.7)
[2023-07-20 16:40] VITALS: BP 116/59; PULSE 84; RESP 16; TEMP 36.1; O2SAT 94
[2023-07-20 17:15] LABS: Glucose Point of Care 145 mg/dl (65-105)
[2023-07-20 20:14] VITALS: PULSE 78
[2023-07-20] MEDS: ATORVASTATIN 40 MG TABLET PO (20:15)
[2023-07-20] MEDS: LATANOPROST 0.005% OP SOLN 2.5 ML BTL 1 DROP EACH EYE (20:16)
[2023-07-20] MEDS: INSULIN GLARGINE (*BKC) 1,000 UNITS/10 ML VIAL 15 UNITS SUB-Q (20:17)
[2023-07-20 20:25] LABS: Glucose Point of Care 189 mg/dl (65-105)
[2023-07-20 23:15] VITALS: BP 110/56; PULSE 81; RESP 15; TEMP 36.2; O2SAT 96
[2023-07-21] MEDS: oxyCODONE HCL (*CRX) 5 MG TAB IR PO ×6 (01:50→21:00)
[2023-07-21 08:00] VITALS: BP 115/74; PULSE 78; RESP 14; TEMP 36.6; O2SAT 98
[2023-07-21 08:01] LABS: Glucose Point of Care 129 mg/dl (65-105)
[2023-07-21] MEDS: AMOXICILLIN 500 MG CAPSULE PO ×2 (09:20→21:03)
[2023-07-21] MEDS: LIDOCAINE 5% PATCH 1 PATCH TRANSDERM (09:42)
[2023-07-21] MEDS: DORZOLAMIDE/TIMOLOL OPHTH SOL 10 ML BOTTLE 1 DROP RIGHT EYE ×2 (09:42→17:40)
[2023-07-21 09:43] VITALS: PULSE 72
[2023-07-21] MEDS: LOSARTAN POTASSIUM 25 MG TABLET PO (09:43)
[2023-07-21] MEDS: ENOXAPARIN 30 MG/0.3 ML SYRINGE SUB-Q ×2 (09:43→21:04)
[2023-07-21] MEDS: METOPROLOL TARTRATE 50 MG TAB 100 MG PO ×2 (09:43→21:03)
[2023-07-21] MEDS: LORATADINE 10 MG TABLET PO (09:44)
[2023-07-21] MEDS: MAGNESIUM CHLORIDE 64 MG TABLET PO (09:44)
[2023-07-21] MEDS: ORPHENADRINE CITRATE 100 MG TABLET.ER PO ×2 (09:44→21:03)
[2023-07-21 11:47] LABS: Glucose Point of Care 134 mg/dl (65-105)
--- NOTE | 2023-07-21 13:43 | PC.NURSE ---
Pt's amoxicillin would not scan at 0900. RO
[2023-07-21 16:35] VITALS: BP 111/54; PULSE 82; RESP 16; TEMP 36.3; O2SAT 98
[2023-07-21 21:03] VITALS: PULSE 74
[2023-07-21] MEDS: ATORVASTATIN 40 MG TABLET PO (21:04)
[2023-07-21] MEDS: LATANOPROST 0.005% OP SOLN 2.5 ML BTL 1 DROP EACH EYE (21:05)
[2023-07-21 21:08] LABS: Glucose Point of Care 193 mg/dl (65-105)
[2023-07-21] MEDS: INSULIN GLARGINE (*BKC) 1,000 UNITS/10 ML VIAL 15 UNITS SUB-Q (21:11)
--- NOTE | 2023-07-21 21:36 | PC.NURSE ---
Patient assisted to bed side commode. Patient urinated clear aditi urine. No c/o pain or burning with urination. Patient lying in bed and stated she did not want to turn and reposition due to patient feels comfortable at this time. Call light and belongings within reach.
--- NOTE | 2023-07-21 22:51 | PC.NURSE ---
Patient resting quietly. Side rails up x2. Call light and belongings within reach.
[2023-07-22] VITALS: BP 130/80; PULSE 80; RESP 16; TEMP 36.1; O2SAT 96
[2023-07-22] MEDS: oxyCODONE HCL (*CRX) 5 MG TAB IR PO ×6 (00:54→20:11)
[2023-07-22 08:00] VITALS: BP 128/78; PULSE 78; RESP 14; TEMP 36.6; O2SAT 98
[2023-07-22] MEDS: ENOXAPARIN 30 MG/0.3 ML SYRINGE SUB-Q ×2 (09:20→20:09)
[2023-07-22] MEDS: LIDOCAINE 5% PATCH 1 PATCH TRANSDERM (09:20)
[2023-07-22] MEDS: ORPHENADRINE CITRATE 100 MG TABLET.ER PO ×2 (09:20→20:10)
[2023-07-22] MEDS: LOSARTAN POTASSIUM 25 MG TABLET PO (09:20)
[2023-07-22 09:21] VITALS: PULSE 78
[2023-07-22] MEDS: DORZOLAMIDE/TIMOLOL OPHTH SOL 10 ML BOTTLE 1 DROP RIGHT EYE ×2 (09:21→17:01)
[2023-07-22] MEDS: MAGNESIUM CHLORIDE 64 MG TABLET PO (09:21)
[2023-07-22] MEDS: METOPROLOL TARTRATE 50 MG TAB 100 MG PO ×2 (09:21→20:11)
[2023-07-22] MEDS: AMOXICILLIN 500 MG CAPSULE PO ×2 (09:21→20:10)
[2023-07-22] MEDS: LORATADINE 10 MG TABLET PO (09:21)
[2023-07-22 16:00] VITALS: BP 128/60; PULSE 79; RESP 16; TEMP 36.3; O2SAT 95
[2023-07-22 16:03] LABS: Basophils Absolute Auto 0.03 K/mm3 (0.00-0.10); Basophils Percent Auto 0.3 % (0.0-1.0); Hematocrit 35.6 % (35.0-42.0); Immature Granulocyte Absolute 0.04 K/mm3 (0.00-0.00); Immature Granulocyte Percent A 0.4 % (0.0-0.0); Lymphocytes Absolute Auto 1.09 K/mm3 (1.10-4.50); Lymphocytes Percent Auto 10.9 % (18.0-42.0); Mean Corpuscular HGB Conc 30.9 g/dL (32-36); Mean Corpuscular Hemoglobin 29.6 pg (27.0-31.0); Monocytes Absolute Auto 0.84 K/mm3 (0.10-0.90); Monocytes Percent Auto 8.4 % (2.0-11.0); Platelet Count Result 217 K/mm3 (150-420); Red Blood Count 3.71 M/mm3 (4.20-5.40)
[2023-07-22 16:23] LABS: Alanine Aminotransferase 20 U/L (14-59); Albumin Level 3.1 g/dL (3.4-5.0); Alkaline Phosphatase 220 U/L (46-116); Anion Gap 6 mmol/L (4-12); Aspartate Amino Transferase 18 U/L (15-37); Bilirubin,Total 0.8 mg/dL (0.00-1.00); Blood Urea Nitrogen 14 mg/dL (7-18); Calcium 8.7 mg/dL (8.5-10.1); Carbon Dioxide 34 mmol/L (21-32); Chloride 101 mmol/L (98-108); Estimated CRCL calculation 91 ml/min; Estimated Glomerular Filt Rate > 60; Glucose 120 mg/dL (70-99); Osmolality Calculated 293 mOsm/kg (285-295); Potassium 4.3 mmol/L (3.5-5.1); Sodium 141 mmol/L (136-145); Total Protein 6.7 g/dL (6.4-8.2)
[2023-07-22] MEDS: INSULIN GLARGINE (*BKC) 1,000 UNITS/10 ML VIAL 15 UNITS SUB-Q (20:09)
[2023-07-22] MEDS: ATORVASTATIN 40 MG TABLET PO (20:10)
[2023-07-22 20:11] VITALS: PULSE 76
[2023-07-22] MEDS: DOCUSATE SODIUM 100 MG CAPSULE PO (20:11)
[2023-07-22] MEDS: LATANOPROST 0.005% OP SOLN 2.5 ML BTL 1 DROP EACH EYE (20:26)
[2023-07-23] VITALS: BP 140/56; PULSE 75; RESP 16; TEMP 36.3; O2SAT 93
[2023-07-23] MEDS: oxyCODONE HCL (*CRX) 5 MG TAB IR PO ×6 (00:46→20:21)
[2023-07-23 07:53] VITALS: BP 125/59; PULSE 78; RESP 16; TEMP 36.4; O2SAT 94
[2023-07-23] MEDS: ENOXAPARIN 30 MG/0.3 ML SYRINGE SUB-Q ×2 (09:15→20:21)
[2023-07-23] MEDS: DORZOLAMIDE/TIMOLOL OPHTH SOL 10 ML BOTTLE 1 DROP RIGHT EYE ×2 (09:18→17:09)
[2023-07-23 09:19] VITALS: PULSE 76
[2023-07-23] MEDS: LOSARTAN POTASSIUM 25 MG TABLET PO (09:19)
[2023-07-23] MEDS: METOPROLOL TARTRATE 50 MG TAB 100 MG PO ×2 (09:19→20:20)
[2023-07-23] MEDS: AMOXICILLIN 500 MG CAPSULE PO ×2 (09:20→20:21)
[2023-07-23] MEDS: LIDOCAINE 5% PATCH 1 PATCH TRANSDERM (09:20)
[2023-07-23] MEDS: LORATADINE 10 MG TABLET PO (09:20)
[2023-07-23] MEDS: ORPHENADRINE CITRATE 100 MG TABLET.ER PO ×2 (09:21→20:21)
[2023-07-23] MEDS: MAGNESIUM CHLORIDE 64 MG TABLET PO (09:21)
--- NOTE | 2023-07-23 13:33 | PC.NURSE ---
Called [facility] office about follow up appointment. The nurse from that office will be calling back regarding follow up.
[2023-07-23 16:00] VITALS: BP 126/47; PULSE 82; RESP 16; TEMP 36.2; O2SAT 96
[2023-07-23 20:20] VITALS: PULSE 81
[2023-07-23] MEDS: ATORVASTATIN 40 MG TABLET PO (20:20)
[2023-07-23] MEDS: LATANOPROST 0.005% OP SOLN 2.5 ML BTL 1 DROP EACH EYE (20:21)
[2023-07-23] MEDS: INSULIN GLARGINE (*BKC) 1,000 UNITS/10 ML VIAL 15 UNITS SUB-Q (20:25)
[2023-07-24] VITALS: BP 130/61; PULSE 79; RESP 18; TEMP 36.1; O2SAT 96
[2023-07-24] MEDS: oxyCODONE HCL (*CRX) 5 MG TAB IR PO ×6 (00:53→21:46)
[2023-07-24] MEDS: DOCUSATE SODIUM 100 MG CAPSULE PO (06:13)
[2023-07-24] MEDS: polyethylene glycoL 3350 17 GM POWD.PACK PO ×2 (06:14→12:00)
[2023-07-24 08:00] VITALS: BP 136/68; PULSE 78; RESP 14; TEMP 36.6; O2SAT 97
[2023-07-24 09:00] VITALS: PULSE 78
[2023-07-24] MEDS: LOSARTAN POTASSIUM 25 MG TABLET PO (09:00)
[2023-07-24] MEDS: METOPROLOL TARTRATE 50 MG TAB 100 MG PO ×2 (09:00→21:46)
[2023-07-24] MEDS: DORZOLAMIDE/TIMOLOL OPHTH SOL 10 ML BOTTLE 1 DROP RIGHT EYE ×2 (09:00→17:03)
[2023-07-24] MEDS: LORATADINE 10 MG TABLET PO (09:00)
[2023-07-24] MEDS: AMOXICILLIN 500 MG CAPSULE PO (09:00)
[2023-07-24] MEDS: ORPHENADRINE CITRATE 100 MG TABLET.ER PO ×2 (09:00→21:46)
[2023-07-24] MEDS: ENOXAPARIN 30 MG/0.3 ML SYRINGE SUB-Q ×2 (09:00→21:46)
[2023-07-24] MEDS: LIDOCAINE 5% PATCH 1 PATCH TRANSDERM (09:00)
[2023-07-24] MEDS: MAGNESIUM CHLORIDE 64 MG TABLET PO (11:59)
[2023-07-24 16:00] VITALS: BP 126/58; PULSE 76; RESP 18; TEMP 36.6; O2SAT 95
[2023-07-24] MEDS: LATANOPROST 0.005% OP SOLN 2.5 ML BTL 1 DROP EACH EYE (21:46)
[2023-07-24] MEDS: INSULIN GLARGINE (*BKC) 1,000 UNITS/10 ML VIAL 15 UNITS SUB-Q (21:46)
[2023-07-24] MEDS: ATORVASTATIN 40 MG TABLET PO (21:46)
[2023-07-25] VITALS: BP 122/51; PULSE 73; RESP 14; TEMP 36.3; O2SAT 95
[2023-07-25] MEDS: oxyCODONE HCL (*CRX) 5 MG TAB IR PO ×6 (00:52→20:41)
[2023-07-25 08:00] VITALS: BP 141/75; PULSE 79; RESP 17; TEMP 36; O2SAT 96
[2023-07-25 08:04] LABS: Glucose Point of Care 125 mg/dl (65-105)
[2023-07-25] MEDS: LIDOCAINE 5% PATCH 1 PATCH TRANSDERM (09:08)
[2023-07-25 09:09] VITALS: PULSE 77
[2023-07-25] MEDS: MAGNESIUM CHLORIDE 64 MG TABLET PO (09:09)
[2023-07-25] MEDS: ORPHENADRINE CITRATE 100 MG TABLET.ER PO ×2 (09:09→20:41)
[2023-07-25] MEDS: METOPROLOL TARTRATE 50 MG TAB 100 MG PO ×2 (09:09→20:41)
[2023-07-25] MEDS: LORATADINE 10 MG TABLET PO (09:09)
[2023-07-25] MEDS: ENOXAPARIN 30 MG/0.3 ML SYRINGE SUB-Q ×2 (09:09→20:41)
[2023-07-25] MEDS: polyethylene glycoL 3350 17 GM POWD.PACK PO (09:09)
[2023-07-25] MEDS: LOSARTAN POTASSIUM 25 MG TABLET PO (09:09)
[2023-07-25] MEDS: DORZOLAMIDE/TIMOLOL OPHTH SOL 10 ML BOTTLE 1 DROP RIGHT EYE ×2 (09:09→16:57)
[2023-07-25 13:06] LABS: Glucose Point of Care 187 mg/dl (65-105)
[2023-07-25 13:06] LABS: Glucose Point of Care 138 mg/dl (65-105)
[2023-07-25 13:06] LABS: Glucose Point of Care 136 mg/dl (65-105)
[2023-07-25 13:06] LABS: Glucose Point of Care 254 mg/dl (65-105)
[2023-07-25 13:06] LABS: Glucose Point of Care 129 mg/dl (65-105)
[2023-07-25 13:06] LABS: Glucose Point of Care 161 mg/dl (65-105)
[2023-07-25 13:06] LABS: Glucose Point of Care 124 mg/dl (65-105)
[2023-07-25 13:06] LABS: Glucose Point of Care 127 mg/dl (65-105)
[2023-07-25 13:06] LABS: Glucose Point of Care 145 mg/dl (65-105)
[2023-07-25 13:06] LABS: Glucose Point of Care 115 mg/dl (65-105)
[2023-07-25 13:06] LABS: Glucose Point of Care 121 mg/dl (65-105)
[2023-07-25 13:06] LABS: Glucose Point of Care 113 mg/dl (65-105)
[2023-07-25 13:06] LABS: Glucose Point of Care 101 mg/dl (65-105)
[2023-07-25 13:06] LABS: Glucose Point of Care 117 mg/dl (65-105)
[2023-07-25 13:06] LABS: Glucose Point of Care 147 mg/dl (65-105)
[2023-07-25 13:06] LABS: Glucose Point of Care 125 mg/dl (65-105)
[2023-07-25 13:06] LABS: Glucose Point of Care 121 mg/dl (65-105)
[2023-07-25 14:07] LABS: Glucose Point of Care 127 mg/dl (65-105)
[2023-07-25 16:00] VITALS: BP 152/59; PULSE 81; RESP 17; TEMP 36; O2SAT 94
[2023-07-25 16:59] LABS: Glucose Point of Care 113 mg/dl (65-105)
[2023-07-25] MEDS: LATANOPROST 0.005% OP SOLN 2.5 ML BTL 1 DROP EACH EYE (20:41)
[2023-07-25] MEDS: INSULIN GLARGINE (*BKC) 1,000 UNITS/10 ML VIAL 15 UNITS SUB-Q (20:41)
[2023-07-25] MEDS: ATORVASTATIN 40 MG TABLET PO (20:41)
[2023-07-25 20:47] LABS: Glucose Point of Care 150 mg/dl (65-105)
[2023-07-26] VITALS (7 sets, daily range): BP systolic 125–148; BP diastolic 55–58; PULSE 70–80; RESP 15–20; TEMP 35.8–36.6; O2SAT 95–96
[2023-07-26] MEDS: oxyCODONE HCL (*CRX) 5 MG TAB IR PO ×6 (01:28→23:50)
[2023-07-26 08:11] LABS: Glucose Point of Care 119 mg/dl (65-105)
[2023-07-26] MEDS: DORZOLAMIDE/TIMOLOL OPHTH SOL 10 ML BOTTLE 1 DROP RIGHT EYE ×2 (09:12→17:52)
[2023-07-26] MEDS: METOPROLOL TARTRATE 50 MG TAB 100 MG PO ×2 (09:12→20:52)
[2023-07-26] MEDS: ORPHENADRINE CITRATE 100 MG TABLET.ER PO ×2 (09:12→20:51)
[2023-07-26] MEDS: polyethylene glycoL 3350 17 GM POWD.PACK PO (09:12)
[2023-07-26] MEDS: DOCUSATE SODIUM 100 MG CAPSULE PO ×2 (09:13→17:52)
[2023-07-26] MEDS: MAGNESIUM CHLORIDE 64 MG TABLET PO (09:13)
[2023-07-26] MEDS: LORATADINE 10 MG TABLET PO (09:13)
[2023-07-26] MEDS: ENOXAPARIN 30 MG/0.3 ML SYRINGE SUB-Q ×2 (09:13→20:52)
[2023-07-26] MEDS: LIDOCAINE 5% PATCH 1 PATCH TRANSDERM (09:13)
[2023-07-26] MEDS: LOSARTAN POTASSIUM 25 MG TABLET PO (09:13)
--- NOTE | 2023-07-26 10:52 | PC.NURSE ---
This nurse spoke with nurse from Dr. Vazquez office about tele-health visit. Appointment scheduled for 08/01/[address] Vazquez office provided with patients phone number [phone] and will contact patient day of appt.
[2023-07-26 12:04] LABS: Glucose Point of Care 158 mg/dl (65-105)
--- NOTE | 2023-07-26 16:43 | PM.IMPN ---
Progress Note: A&P Assessment and Plan (1) Pelvic fracture: Code(s): S32.9XXA - Fracture of unspecified parts of lumbosacral spine and pelvis, initial encounter for closed fracture Status: Acute Assessment and Plan: 07/13/23: continue phsycial therapy and occupational therapy, Strengthen so patient is able to discharge home. 07/20/23: Continue with PT and OT as scheduled care conference scheduled for July 24 patient still requiring moderate a full assist with activities continue pain control, we will change her oxycodone IR to scheduled for better pain control 07/25: Working well with therapy, ambulatory with walker, oxycodone changed to q.6 hours scheduled to decrease daytime sleepiness, Tylenol for breakthrough pain (2) Invasive ductal carcinoma of breast, female: Code(s): C50.919 - Malignant neoplasm of unspecified site of unspecified female breast Status: Acute Assessment and Plan: 07/13/23: cancer chemo on hold Mets identified treatment will be addressed on discharge 07/20/23: patient currently getting active chemo treatments however this is placed on hold while patient is in rehab 07/25: Unchanged (3) Hypomagnesemia: Code(s): E83.42 - Hypomagnesemia Status: Acute Assessment and Plan: 07/13/23: stable continue with home oral magnesium 07/20/23: last magnesium on 07/14/2023 was 1.7 we will go ahead and recheck a magnesium today and supplement as needed 07/25: (4) Diabetes: Code(s): E11.9 - Type 2 diabetes mellitus without complications Status: Chronic Assessment and Plan: 07/13/23: continue home medication continue insulin 07/20/23: blood glucose ranging 118-187 hemoglobin A1c was 7.4 on 10/30/2022, we will repeat her hemoglobin A1c today continue Lantus 15 units subQ HS will continue with moderate dose sliding scale insulin hypoglycemic protocol in place 07/25: Glucose well controlled on current treatment, no changes (5) HTN (hypertension): Code(s): I10 - Essential (primary) hypertension Status: Chronic Assessment and Plan: 07/13/23: stable continue home medication 07/20/23: blood pressure ranging 121/63 to 147/63 continue losartan 07/25: Blood pressure stable, no changes Time Spent With Patient Time with patient: 25 - 35 minutes Subjective Date/time seen: 07/26/23 16:43 Interval history: Patient is progressing well with therapy better able to ambulate to and from bathroom pain is moderately controlled with oxycodone. Patient is very sleepy throughout the day according the nursing staff and is receiving oxycodone scheduled every 4 hours. We will extend this to every 6 hours scheduled because when it was p.r.n. patient was not asking for the pain medication and she was not seen on top of the pain well enough. Tylenol to be used for breakthrough pain p.r.n. Review of Systems Review of Systems: weakness, Pelvic fracture All systems reviewed & are unremarkable except as noted in HPI and below Exam Narrative: GENERAL: Weak appearing, in no acute distress. HEAD: Normocephalic, atraumatic. ENT:? Mucous membranes moist. CHEST: Clear to auscultation.? No respiratory distress. HEART: Regular rate and rhythm. ? Normal peripheral pulses. ABDOMEN: Soft, nontender, nondistended. EXTREMITIES: Normal range of motion. No peripheral edema. Ambulatory with walker with some discomfort in the pelvis SKIN: Warm dry normal color NEURO: Alert and oriented x3. PSYCH: Normal mood and affect Objective Data Vital Signs Vital Signs: Vital Signs - 24 hr 07/26/23 00:00 07/26/23 09:12 07/26/23 08:00 Temperature 36.3 C L 36.6 C Pulse Rate 77 80 80 Respiratory Rate 15 16 Blood Pressure 148/58 H 125/55 L Pulse Oximetry 96 96 Oxygen Delivery Room Air Room Air 07/26/23 16:20 Temperature 35.8 C L Pulse Rate 79 Respiratory Rate 16 Blood Pressure 146/56 H Pu
[2023-07-26 17:10] LABS: Glucose Point of Care 90 mg/dl (65-105)
[2023-07-26 20:52] LABS: Glucose Point of Care 145 mg/dl (65-105)
[2023-07-26] MEDS: ATORVASTATIN 40 MG TABLET PO (20:52)
[2023-07-26] MEDS: LATANOPROST 0.005% OP SOLN 2.5 ML BTL 1 DROP EACH EYE (20:53)
[2023-07-26] MEDS: INSULIN GLARGINE (*BKC) 1,000 UNITS/10 ML VIAL 15 UNITS SUB-Q (20:54)
[2023-07-27] MEDS: oxyCODONE HCL (*CRX) 5 MG TAB IR PO ×4 (05:56→23:13)
[2023-07-27 07:34] LABS: Glucose Point of Care 151 mg/dl (65-105)
[2023-07-27 08:00] VITALS: BP 130/65; PULSE 74; RESP 16; TEMP 35.9; O2SAT 94
[2023-07-27 08:22] VITALS: PULSE 78
[2023-07-27] MEDS: DOCUSATE SODIUM 100 MG CAPSULE PO ×2 (08:22→17:18)
[2023-07-27] MEDS: ORPHENADRINE CITRATE 100 MG TABLET.ER PO ×2 (08:22→20:47)
[2023-07-27] MEDS: METOPROLOL TARTRATE 50 MG TAB 100 MG PO ×2 (08:22→20:48)
[2023-07-27] MEDS: LOSARTAN POTASSIUM 25 MG TABLET PO (08:23)
[2023-07-27] MEDS: MAGNESIUM CHLORIDE 64 MG TABLET PO (08:23)
[2023-07-27] MEDS: LORATADINE 10 MG TABLET PO (08:23)
[2023-07-27] MEDS: DORZOLAMIDE/TIMOLOL OPHTH SOL 10 ML BOTTLE 1 DROP RIGHT EYE ×2 (08:24→17:16)
[2023-07-27] MEDS: LIDOCAINE 5% PATCH 1 PATCH TRANSDERM (08:24)
[2023-07-27] MEDS: ENOXAPARIN 30 MG/0.3 ML SYRINGE SUB-Q ×2 (08:24→20:45)
[2023-07-27 11:52] LABS: Glucose Point of Care 150 mg/dl (65-105)
[2023-07-27 16:00] VITALS: BP 120/60; PULSE 80; RESP 16; TEMP 36.1; O2SAT 95
[2023-07-27 16:55] LABS: Glucose Point of Care 170 mg/dl (65-105)
[2023-07-27] MEDS: ACETAMINOPHEN 325 MG TABLET 650 MG PO (17:17)
[2023-07-27 20:00] VITALS: PULSE 71; RESP 16; O2SAT 95
[2023-07-27 20:48] VITALS: PULSE 71
[2023-07-27] MEDS: LATANOPROST 0.005% OP SOLN 2.5 ML BTL 1 DROP EACH EYE (20:48)
[2023-07-27] MEDS: ATORVASTATIN 40 MG TABLET PO (20:48)
[2023-07-27 20:50] LABS: Glucose Point of Care 174 mg/dl (65-105)
[2023-07-27] MEDS: INSULIN GLARGINE (*BKC) 1,000 UNITS/10 ML VIAL 15 UNITS SUB-Q (20:50)
[2023-07-28] VITALS: BP 118/47; PULSE 71; RESP 16; TEMP 35.9; O2SAT 96
[2023-07-28] MEDS: ACETAMINOPHEN 325 MG TABLET 650 MG PO ×2 (04:33→21:03)
[2023-07-28] MEDS: oxyCODONE HCL (*CRX) 5 MG TAB IR PO ×3 (05:29→17:30)
[2023-07-28 07:26] LABS: Glucose Point of Care 130 mg/dl (65-105)
[2023-07-28 07:58] VITALS: BP 136/64; PULSE 71; RESP 16; TEMP 35.9; O2SAT 95
[2023-07-28] MEDS: ENOXAPARIN 30 MG/0.3 ML SYRINGE SUB-Q ×2 (09:16→21:07)
[2023-07-28] MEDS: LIDOCAINE 5% PATCH 1 PATCH TRANSDERM (09:18)
[2023-07-28 09:19] VITALS: PULSE 74
[2023-07-28] MEDS: LORATADINE 10 MG TABLET PO (09:19)
[2023-07-28] MEDS: METOPROLOL TARTRATE 50 MG TAB 100 MG PO ×2 (09:19→21:02)
[2023-07-28] MEDS: ORPHENADRINE CITRATE 100 MG TABLET.ER PO ×2 (09:20→21:02)
[2023-07-28] MEDS: MAGNESIUM CHLORIDE 64 MG TABLET PO (09:20)
[2023-07-28] MEDS: DOCUSATE SODIUM 100 MG CAPSULE PO ×2 (09:20→17:30)
[2023-07-28] MEDS: LOSARTAN POTASSIUM 25 MG TABLET PO (09:21)
[2023-07-28] MEDS: DORZOLAMIDE/TIMOLOL OPHTH SOL 10 ML BOTTLE 1 DROP RIGHT EYE ×2 (09:21→17:30)
[2023-07-28 11:49] LABS: Glucose Point of Care 145 mg/dl (65-105)
[2023-07-28 16:00] VITALS: BP 130/60; PULSE 71; RESP 16; TEMP 35.9; O2SAT 96
[2023-07-28 16:32] LABS: Glucose Point of Care 106 mg/dl (65-105)
[2023-07-28 20:00] VITALS: PULSE 80; RESP 16; O2SAT 96
[2023-07-28 21:02] VITALS: PULSE 80
[2023-07-28] MEDS: INSULIN GLARGINE (*BKC) 1,000 UNITS/10 ML VIAL 15 UNITS SUB-Q (21:08)
[2023-07-28 21:10] LABS: Glucose Point of Care 186 mg/dl (65-105)
[2023-07-28] MEDS: ATORVASTATIN 40 MG TABLET PO (21:15)
[2023-07-28] MEDS: LATANOPROST 0.005% OP SOLN 2.5 ML BTL 1 DROP EACH EYE (21:15)
[2023-07-29] VITALS: BP 126/43; PULSE 80; RESP 17; TEMP 35.9; O2SAT 96
[2023-07-29] MEDS: oxyCODONE HCL (*CRX) 5 MG TAB IR PO ×2 (00:07→05:39)
[2023-07-29] MEDS: ACETAMINOPHEN 325 MG TABLET 650 MG PO (01:09)
[2023-07-29 02:05] VITALS: TEMP 35.9
[2023-07-29 07:42] LABS: Glucose Point of Care 131 mg/dl (65-105)
[2023-07-29 08:00] VITALS: BP 130/50; PULSE 80; RESP 14; TEMP 36.6; O2SAT 96
[2023-07-29 09:25] VITALS: PULSE 76
[2023-07-29] MEDS: LIDOCAINE 5% PATCH 1 PATCH TRANSDERM ×2 (09:25→09:41)
[2023-07-29] MEDS: METOPROLOL TARTRATE 50 MG TAB 100 MG PO (09:25)
[2023-07-29] MEDS: LORATADINE 10 MG TABLET PO (09:26)
[2023-07-29] MEDS: ORPHENADRINE CITRATE 100 MG TABLET.ER PO (09:26)
[2023-07-29] MEDS: MAGNESIUM CHLORIDE 64 MG TABLET PO (09:26)
[2023-07-29] MEDS: LOSARTAN POTASSIUM 25 MG TABLET PO (09:26)
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
[2023-07-29] MEDS: DORZOLAMIDE/TIMOLOL OPHTH SOL 10 ML BOTTLE 1 DROP RIGHT EYE (09:28)
[2023-07-29] MEDS: ENOXAPARIN 30 MG/0.3 ML SYRINGE SUB-Q (09:37)
[2023-07-29] MEDS: oxyCODONE HCL (*CRX) 10 MG TAB SR 12HR PO (09:41)
[2023-07-29 11:43] LABS: Glucose Point of Care 158 mg/dl (65-105)
--- NOTE | 2023-07-29 15:50 | PC.NURSE ---
Patient's grandson here to drive patient home. Discharge instructions explained and copy given to patient. Patient stated understanding. No current open area or wounds observed. Assisted via wheelchair to car.
--- NOTE | 2023-07-30 12:59 | PC.NURSE ---
Discharge call back completed, no questions regarding dc instructions
== END 2023-07-29 15:40 | disposition home health service (06) | DRG 560 ==
PROVIDERS: Nurse Practitioner; Nurse Practitioner Acute Care; Nurse Practitioner Family; Admitting Provider Internal Medicine; PCP Family Medicine; Visit Provider Internal Medicine
DX: S32.9XXD Fracture of unspecified parts of lumbosacral spine and pelvis, subsequent encounter for fracture with routine healing (principal); C79.9 Secondary malignant neoplasm of unspecified site; C50.919 Malignant neoplasm of unspecified site of unspecified female breast; I10 Essential (primary) hypertension; J44.9 Chronic obstructive pulmonary disease, unspecified; E11.9 Type 2 diabetes mellitus without complications; E78.5 Hyperlipidemia, unspecified; E83.42 Hypomagnesemia; Z86.73 Personal history of transient ischemic attack (TIA), and cerebral infarction without residual deficits; V89.2XXD Person injured in unspecified motor-vehicle accident, traffic, subsequent encounter; Z79.4 Long term (current) use of insulin
CPT/HCPCS: 36415; 72190; 80048; 80053; 80069; 82948; 83036; 83735; 85025; 85027; 87040; 97110; 97161; 97166; 97530; 97535; A9270; J1650; J1815

== ENCOUNTER 2023-08-19 09:59 | Outpatient (CLI) | payer MEDICARE, SELFPAY ==
[2023-08-19 10:22] LABS: Basophils Absolute Auto 0.01 K/mm3 (0.00-0.10); Basophils Percent Auto 0.2 % (0.0-1.0); Eosinophils Absolute Auto 0.13 K/mm3 (0.02-0.50); Eosinophils Percent Auto 2.2 % (1.0-6.0); Hematocrit 39.4 % (35.0-42.0); Hemoglobin 12.5 g/dL (11.7-13.8); Immature Granulocyte Absolute 0.03 K/mm3 (0.00-0.00); Immature Granulocyte Percent A 0.5 % (0.0-0.0); Immature Platelet Fraction Pct 0.9 % (1.0-7.0); Lymphocytes Percent Auto 18.6 % (18.0-42.0); Mean Corpuscular HGB Conc 31.7 g/dL (32-36); Mean Corpuscular Hemoglobin 30.1 pg (27.0-31.0); Mean Corpuscular Volume 94.9 fL (78.0-102.0); Mean Platelet Volume 8.9 fl (9.2-11.8); Monocytes Absolute Auto 0.56 K/mm3 (0.10-0.90); Monocytes Percent Auto 9.5 % (2.0-11.0); Neutrophils Absolute Auto 4.07 K/mm3 (1.70-7.20); Platelet Count Result 164 K/mm3 (150-420); Red Blood Count 4.15 M/mm3 (4.20-5.40); Red Cell Distribution Width 13.2 % (11.6-14.4); White Blood Count 5.9 K/mm3 (4.8-10.8)
[2023-08-19 23:06] LABS: Alanine Aminotransferase 23 U/L (14-59); Albumin Level 3.4 g/dL (3.4-5.0); Alkaline Phosphatase 227 U/L (46-116); Anion Gap 9 mmol/L (4-12); Aspartate Amino Transferase 17 U/L (15-37); Bilirubin,Total 1.2 mg/dL (0.00-1.00); Blood Urea Nitrogen 22 mg/dL (7-18); Calcium 9.6 mg/dL (8.5-10.1); Carbon Dioxide 30 mmol/L (21-32); Chloride 99 mmol/L (98-108); Estimated Glomerular Filt Rate > 60; Glucose 220 mg/dL (70-99); Osmolality Calculated 296 mOsm/kg (285-295); Potassium 4.5 mmol/L (3.5-5.1); Sodium 138 mmol/L (136-145); Total Protein 7.5 g/dL (6.4-8.2)
[2023-08-21 03:44] LABS: Vitamin D 25 Hydroxy 26 ng/mL (30-100)
[2023-08-21 04:48] LABS: CA 27.29 13 U/mL (<38)
[2023-08-21 06:33] LABS: CA 15-3 9 U/mL (<32)
== END 2023-08-19 10:00 | disposition home or self-care (01) ==
LOC: CHSLAB 10:00
PROVIDERS: PCP Family Medicine; Visit Provider Internal Medicine Hematology
DX: C50.919 Malignant neoplasm of unspecified site of unspecified female breast (principal); E55.9 Vitamin D deficiency, unspecified
CPT/HCPCS: 36415; 80053; 82306; 85025; 85055; 86300

== ENCOUNTER 2023-08-29 11:04 | Outpatient (CLI) | payer MEDICARE, SELFPAY ==
--- NOTE | ~2023-08-29 | XR_ITS ---
EXAM: XR pelvis min 3V DATE: 08/29/2023 11:30 HISTORY: fracture of pelvis . COMPARISON: CT cap 07/09/2023. FINDINGS: Decreased mineralization. Healing nondisplaced and minimally displaced fractures of the bi lateral superior and inferior pelvic rami, left pubic bone, left iliac bone, and left sacrum. No lyti c or blastic lesion. Lumbar degenerative disc disease. No erosion or periosteal change. Atherosclerot ic arterial calcifications and multiple phleboliths. IMPRESSION: Healing pelvic fractures. Reviewed, dictated and finalized at location K. IMPRESSION: Healing pelvic fractures.
== END 2023-08-29 11:05 | disposition home or self-care (01) ==
LOC: CHSLAB 11:08
PROVIDERS: PCP Family Medicine
DX: S32.82XD Multiple fractures of pelvis without disruption of pelvic ring, subsequent encounter for fracture with routine healing (principal)
CPT/HCPCS: 72190

== ENCOUNTER 2023-09-03 08:03 | Outpatient (CLI) | payer MEDICARE, SELFPAY ==
--- NOTE | ~2023-09-03 | PE_ITS ---
EXAMINATION: PET skull to mid thigh DATE: 09/03/2023 09:59 INDICATION: Right breast cancer. TECHNIQUE: Blood glucose level was 163 mg/dL. 8.993 mCi of 18-fluorodeoxyglucose (18-FDG) was adminis tered i.v. Low dose computed tomography (CT) images were acquired from the base of the brain to the p roximal thighs for attenuation correction and anatomic localization. Automated exposure control was e mployed. Dose-length product (DLP) was 1169 mGy-cm. Positron emission tomography (PET) images were ac quired in the same distribution. COMPARISON: CT chest, abdomen, and pelvis 07/08/2022 FINDINGS: Head/neck: There are no pathologically enlarged lymph nodes. Chest: There is minimal atelectasis in the left. No pleural effusion. There is a left internal jugula r port with tip at superior cavoatrial junction. The heart size is normal. There are coronary artery calcifications. No pericardial effusion. There are changes of right axillary lymph node dissection. T here is a 3.7 x 0.8 cm seroma in right axilla. There are few scattered sclerotic lesions of bone with the largest in T7 and T8 vertebral bodies without increased activity. Abdomen/pelvis/proximal thighs: The liver is normal. There is a gallstone in the gallbladder, which i s normal in size. The pancreas, spleen, adrenal glands, and right kidney are normal. There are 2 ston es in left kidney measuring up to 9 mm. There is mild left hydronephrosis. There is a 6 mm stone at l eft ureteropelvic junction. There are no dilated loops of bowel. The appendix is normal. There are no pathologically enlarged lymph nodes. There is no free intraperitoneal fluid. There is subjacent inje ction sites and anterior abdominal wall. There are healing fractures of the bilateral superior and in ferior pubic rami, left ilium, and left sacral ala. There are healing fractures of left L2 and L3 tra nsverse processes. There are multiple scattered sclerotic lesions of bone. There is increased activit y in a sclerotic lesion in right ilium. IMPRESSION: 1. Stable scattered sclerotic lesions of bone, consistent with metastatic disease. Reviewed, dictated and finalized at location A. IMPRESSION: 1. Stable scattered sclerotic lesions of bone, consistent with metastatic disea se.
[2023-09-03 08:24] LABS: Glucose Point of Care 163 mg/dl (65-105)
== END 2023-09-03 08:04 | disposition home or self-care (01) ==
LOC: ANHIMG 08:06
PROVIDERS: PCP Family Medicine; Visit Provider Internal Medicine Hematology
DX: C50.411 Malignant neoplasm of upper-outer quadrant of right female breast (principal); M89.9 Disorder of bone, unspecified
CPT/HCPCS: 78815; A9552

== ENCOUNTER 2023-09-20 00:16 | Day surgery (SDC) | payer MEDICARE, SELFPAY ==
[2023-09-19 14:39] VITALS: BMI 28.1
[2023-09-20] VITALS (11 sets, daily range): BP systolic 119–170; BP diastolic 52–95; PULSE 79–94; RESP 16–21; TEMP 36.4; O2SAT 94–100; BMI 28.6
--- NOTE | ~2023-09-20 | CT_ITS ---
EXAMINATION: CT biopsy bone deep DATE: 09/20/2023 10:43 INDICATION: Sclerotic lesion in right ilium. Breast cancer. TECHNIQUE: The procedure including the risks, benefits, and alternatives was discussed with the patie nt. Risks discussed included bleeding and infection. The patient verbalized understanding of the risk s and agreed to proceed. The skin overlying the right ilium was prepped and draped in usual sterile fashion. Anesthetic was administered with 1% lidocaine subcutaneously. Moderate sedation was achieve d with 1 mg Versed IV and 50 mcg fentanyl IV. An 11-gauge bone biopsy needle was inserted into the sc lerotic lesion in right ilium under CT guidance. The dose-length product was 179.96 mGy-cm. The needl e was removed and the entry site was cleaned and dressed. There were no immediate complications. FINDINGS: CT images demonstrate the needle tip in a 14 mm sclerotic lesion in right ilium.. IMPRESSION: 1. CT-guided core needle biopsy of a sclerotic lesion in right ilium. Reviewed, dictated and finalized at location A.
[2023-09-20 08:11] LABS: Basophils Percent Auto 0.3 % (0.2-1.2); Eosinophils Absolute Auto 0.1 K/mm3 (0-0.3); Hemoglobin 12.9 g/dL (12.0-15.0); Immature Granulocyte Absolute 0.02 K/mm3 (0.00-0.031); Immature Granulocyte Percent A 0.3 % (0-0.5); Lymphocytes Percent Auto 24.6 % (18.3-44.2); Mean Corpuscular HGB Conc 32.3 g/dl (32-36); Mean Corpuscular Hemoglobin 29.9 pg (26-34); Mean Corpuscular Volume 92.6 fl (80-100); Monocytes Absolute Auto 0.6 K/mm3 (0.1-0.6); Monocytes Percent Auto 9.5 % (2.6-8.5); Neutrophils Absolute Auto 4.1 K/mm3 (1.3-6.7); Neutrophils Percent Auto 63.3 % (45.5-73.1); Platelet Count Result 143 k/mm3 (150-375); Red Blood Count 4.32 M/mm3 (4.2-5.4); Red Cell Distribution Width 12.4 % (11.5-14.5); White Blood Count 6.5 K/mm3 (4.5-10.0)
[2023-09-20 08:30] LABS: INR 0.9
--- NOTE | 2023-09-20 08:50 | WPDMODSED ---
Moderate Sedation Note-Pt Data Patient Data Diagnosis: Sclerotic lesion of right ilium. Present Complaint: Sclerotic lesion of right ilium. Procedure to be performed/Plan: CT-guided bone biopsy of right ilium. Allergies Allergy/AdvReac Type Severity Reaction Status Date / Time shellfish derived Allergy Unknown Verified 09/20/23 08:44 Home Medications Medication Instructions Recorded Confirmed Type pen needle, diabetic 32 gauge x #100 ea 03/07/23 07/12/23 Rx 1/4 (BD Ultra-Fine Micro Pen Needle) dorzolamide 2 %-timolol 0.5 % (PF) 1 drp RIGHT EYE BID 05/07/23 09/19/23 History eye drops dulaglutide 0.75 mg/0.5 mL 0.75 mg subcut WEEKLY 05/07/23 09/19/23 History subcutaneous pen injector (Trulicity) latanoprost 0.005 % eye drops 1 drp EACH EYE QHS 05/07/23 09/19/23 History (Xalatan) atorvastatin 40 mg tablet 40 mg PO HS 06/04/23 09/19/23 History losartan 25 mg tablet 25 mg PO DAILY 06/04/23 09/19/23 History albuterol sulfate 90 mcg/actuation 2 puff inhalation Q6H PRN 07/12/23 09/19/23 History aerosol inhaler (ProAir HFA) Shortness Of Breath Or Wheezing dexamethasone 4 mg tablet 4 mg PO DAILY PRN chemo 07/12/23 09/19/23 History docusate sodium 100 mg capsule 100 mg PO BID 07/12/23 09/19/23 History insulin degludec 100 unit/mL (3 15 unit subcut HS 07/12/23 09/19/23 History mL) subcutaneous pen (Tresiba FlexTouch U-100 insulin) lidocaine 4 % topical patch 1 patch topical DAILY 07/12/23 09/19/23 History loratadine 10 mg tablet 10 mg PO DAILY 07/12/23 09/20/23 History magnesium chloride 64 mg 64 mg PO DAILY 07/12/23 09/19/23 History (magnesium chloride) tablet,delayed release (Mag 64) metformin 1,000 mg tablet 1,000 mg PO BID 07/12/23 09/19/23 History metoprolol tartrate 100 mg tablet 100 mg PO Q12H 07/12/23 09/19/23 History polyethylene glycol 3350 17 gram 17 g PO DAILY 07/12/23 09/19/23 History oral powder packet Sedation/Anesthesia: No previous sedation/anesthesia problems (including family history). [facility] Past Medical History Medical History Diabetes History of CVA (cerebrovascular accident) HTN (hypertension) Hyperlipidemia Obesity (BMI 30.0-34.9) Preoperative clearance Surgical History Surgical History History of section Family History Family History Mother Hypertension Other Family history of malignant neoplasm Social History Social History Smoking status: Never smoker Second hand tobacco smoke exposure: Yes Alcohol intake: never Substance use: never Substance use type: does not use Do You Feel Safe in your Home?: Yes Lack of Transportation: No Lack of Food: Never True Current Housing: I Have Housing Concerned About Future Housing: No Difficulty Paying Gas/Electric Bills: No Difficulty Paying for Meds: No Currently Unemployed: No Education: Master's Degree or Higher Difficulty w/ Childcare or Family Care: No Living arrangements: with family Spiritual care concerns: No Mod Sed Physical Exam Physical Exam Pre Procedural Exam: Normal: Lungs, Heart Rate, Heart Rhythm and Abdomen and Variation: Appearance (Obese.) Hours since solid foods: 12 Hours since liquid intake: 12 Mallampati Classification: class III Internal Medicine - PN: Obj Da Vital Signs Vital Signs: Vital Signs - 24 hr 09/20/23 08:10 Temperature 36.4 C Pulse Rate 79 Respiratory Rate 16 Blood Pressure 147/74 H Pulse Oximetry 97 Oxygen Delivery Room Air Labs 09/20/23 08:05 Labs: Laboratory Results - last 24 hr 09/20/23 08:05 WBC 6.5 RBC 4.32 Hgb 12.9 Hct 40.0 MCV 92.6 MCH 29.9 MCHC 32.3 RDW 12.4 Plt Count 143 L MPV 9.0 Immature Gran % (Auto) 0.3 Neut % (Auto) 63.3 Lymph % (Auto
--- NOTE | 2023-09-20 12:01 | SUR.OPER ---
[id number] dept for bone marrow biopsy with moderate sedation. vitals q 5 mins during procedure. pt issa well without distress or c/o. pt transported on monitor to [facility] dept for 1 hr recovery.
== END 2023-09-20 11:45 | disposition home or self-care (01) ==
PROVIDERS: Radiology Diagnostic Radiology; PCP Family Medicine; Referring Provider Internal Medicine Hematology; Visit Provider Radiology Diagnostic Radiology
DX: C79.51 Secondary malignant neoplasm of bone (principal); C50.911 Malignant neoplasm of unspecified site of right female breast; I10 Essential (primary) hypertension; E11.9 Type 2 diabetes mellitus without complications; E78.5 Hyperlipidemia, unspecified; Z79.4 Long term (current) use of insulin; Z79.51 Long term (current) use of inhaled steroids; Z79.84 Long term (current) use of oral hypoglycemic drugs; Z79.85 Long-term (current) use of injectable non-insulin antidiabetic drugs; Z98.890 Other specified postprocedural states; Z86.79 Personal history of other diseases of the circulatory system; Z80.9 Family history of malignant neoplasm, unspecified
CPT/HCPCS: 20225; 36415; 77012; 85025; 85610; 88307; 88311; 88342; J1642; J2250; J3010; J7040

== ENCOUNTER 2023-10-02 14:36 | Outpatient (CLI) | payer MEDICARE, SELFPAY ==
--- NOTE | 2023-10-02 14:50 | ECG_ITS ---
Test Date: 2023-10-02 15:00:34 Measurements Intervals [place] Rate: 82 P: -8 ID: 138 QRS: 65 QRSD: 98 T: -25 QT: 368 QTc: 430 Interpretive Statements SINUS RHYTHM CANNOT R/O SEPTAL INFARCT, AGE INDETERMINATE CONSIDER INFERIOR INFARCT, AGE INDETERMINATE BORDERLINE T WAVE ABNORMALITY- HIGH LATERAL LEADS BASELINE ARTIFACT- I, III, AVR, AVL ABNORMAL ECG No previous ECG available for comparison Electronically Signed On 10-02-2023 15:06:25 CDT by Raul Jacinto D.O.
[2023-10-02 14:56] LABS: Basophils Absolute Auto 0.02 K/mm3 (0.00-0.10); Basophils Percent Auto 0.3 % (0.0-1.0); Eosinophils Absolute Auto 0.11 K/mm3 (0.02-0.50); Eosinophils Percent Auto 1.8 % (1.0-6.0); Hematocrit 41.3 % (35.0-42.0); Hemoglobin 13.6 g/dL (11.7-13.8); Immature Granulocyte Absolute 0.03 K/mm3 (0.00-0.00); Immature Granulocyte Percent A 0.5 % (0.0-0.0); Lymphocytes Absolute Auto 1.61 K/mm3 (1.10-4.50); Lymphocytes Percent Auto 26.6 % (18.0-42.0); Mean Corpuscular HGB Conc 32.9 g/dL (32-36); Mean Corpuscular Hemoglobin 29.6 pg (27.0-31.0); Mean Corpuscular Volume 89.8 fL (78.0-102.0); Mean Platelet Volume 9.2 fl (9.2-11.8); Monocytes Absolute Auto 0.59 K/mm3 (0.10-0.90); Monocytes Percent Auto 9.8 % (2.0-11.0); Neutrophils Absolute Auto 3.69 K/mm3 (1.70-7.20); Platelet Count Result 146 K/mm3 (150-420); Red Cell Distribution Width 12.4 % (11.6-14.4); White Blood Count 6.1 K/mm3 (4.8-10.8)
[2023-10-02 15:44] LABS: Alanine Aminotransferase 19 U/L (14-59); Albumin Level 3.5 g/dL (3.4-5.0); Alkaline Phosphatase 126 U/L (46-116); Anion Gap 8 mmol/L (4-12); Aspartate Amino Transferase 18 U/L (15-37); Bilirubin,Total 0.7 mg/dL (0.00-1.00); Blood Urea Nitrogen 19 mg/dL (7-18); Calcium 9.4 mg/dL (8.5-10.1); Carbon Dioxide 29 mmol/L (21-32); Chloride 101 mmol/L (98-108); Estimated Glomerular Filt Rate > 60; Glucose 340 mg/dL (70-99); Osmolality Calculated 301 mOsm/kg (285-295); Potassium 4.6 mmol/L (3.5-5.1); Sodium 138 mmol/L (136-145); Total Protein 7.8 g/dL (6.4-8.2)
== END 2023-10-02 14:37 | disposition home or self-care (01) ==
LOC: CHSLAB 14:40
PROVIDERS: PCP Family Medicine; Visit Provider Internal Medicine Hematology
DX: C50.919 Malignant neoplasm of unspecified site of unspecified female breast (principal); R94.31 Abnormal electrocardiogram [ECG] [EKG]
CPT/HCPCS: 36415; 80053; 85025; 93005

== ENCOUNTER 2023-10-12 08:51 | Outpatient (CLI) | payer MEDICARE, SELFPAY ==
--- NOTE | ~2023-10-12 | MR_ITS ---
MRI of the brain Clinical History: Breast cancer Technique: Axial and sagittal T1-weighted images were acquired. These were followed by axial T2-weigh kojo, diffusion weighted, gradient, and FLAIR images. Following intravenous administration of 17 cc Mu ltiHance gadolinium, T1-weighted fat-sat imaging was performed in the axial and coronal planes. COMPARISON: 11/19/2012 Findings: No acute infarct, intracranial hemorrhage, or mass lesion identified. Probable chronic infa rct in the left temporal lobe noted. There are patchy mild to moderate chronic microvascular ischemic changes in the periventricular white matter bilaterally. Probable chronic lacunar infarct in the rig ht centrum semiovale. Ventricles and subarachnoid spaces are unremarkable. Orbits are unremarkable. Paranasal sinuses and m astoid air cells are clear. Major intracranial flow voids are intact. Sagittal midline structures are intact. No abnormal postcontrast enhancement identified. IMPRESSION: No acute abnormality. No evidence of intracranial metastasis. Chronic infarcts and chronic white matter disease, as detailed above. Reviewed, dictated and finalized at location M.
== END 2023-10-12 08:52 | disposition home or self-care (01) ==
LOC: CHSIMG 08:51
PROVIDERS: PCP Family Medicine; Visit Provider Internal Medicine Hematology
DX: C50.919 Malignant neoplasm of unspecified site of unspecified female breast (principal); Z86.73 Personal history of transient ischemic attack (TIA), and cerebral infarction without residual deficits; R90.82 White matter disease, unspecified
CPT/HCPCS: 70553; A9577

== ENCOUNTER 2023-10-16 11:06 | Outpatient (CLI) | payer MEDICARE, SELFPAY | END 2023-10-16 11:07 | disposition home or self-care (01) | LOC: CHSLAB 11:07 | PROVIDERS: PCP Family Medicine; Visit Provider Internal Medicine Hematology | DX: C50.411 Malignant neoplasm of upper-outer quadrant of right female breast (principal) | CPT/HCPCS: 87040 ==

== ENCOUNTER 2023-11-20 11:27 | Outpatient (CLI) | payer MEDICARE, SELFPAY ==
--- NOTE | 2023-11-20 11:38 | ECG_ITS ---
Test Date: 2023-11-20 11:48:15 Measurements Intervals [place] Rate: 67 P: 67 WI: 148 QRS: 0 QRSD: 88 T: 72 QT: 413 QTc: 437 Interpretive Statements SINUS RHYTHM CANNOT R/O SEPTAL INFARCT, AGE INDETERMINATE Compared to ECG 10/02/2023 15:00:34 NO SIGNIFICANT CHANGES Electronically Signed On 11-20-2023 15:50:27 CDT by Miranda Jolley M.D.
[2023-11-20 11:46] LABS: Hematocrit 33.2 % (35.0-42.0); Hemoglobin 11.1 g/dL (11.7-13.8); Mean Corpuscular HGB Conc 33.4 g/dL (32-36); Mean Corpuscular Hemoglobin 30.2 pg (27.0-31.0); Mean Corpuscular Volume 90.2 fL (78.0-102.0); Mean Platelet Volume 9.4 fl (9.2-11.8); Platelet Count Result 115 K/mm3 (150-420); Red Blood Count 3.68 M/mm3 (4.20-5.40); Red Cell Distribution Width 14.4 % (11.6-14.4); White Blood Count 2.7 K/mm3 (4.8-10.8)
[2023-11-20 12:53] LABS: Band Neutrophils Percent 0 % (0-6); Eosinophils Absolute Manual 0.05 K/mm3 (0.02-0.50); Eosinophils Percent Manual 2 % (1-6); Lymphocytes Absolute Manual 1.45 K/mm3 (1.1-4.5); Lymphocytes Percent Manual 54 % (18-44); Monocytes Percent Manual 4 % (3-9); Neutrophils Absolute Manual 1.08 K/mm3 (1.7-7.2); Neutrophils Percent Manual 40 % (46-73); Platelet Estimate Slightly Decreased (Adequate); Total Cells Counted 100
[2023-11-20 12:54] LABS: Anion Gap 7 mmol/L (4-12); Blood Urea Nitrogen 24 mg/dL (7-18); Carbon Dioxide 29 mmol/L (21-32); Chloride 105 mmol/L (98-108); Estimated Glomerular Filt Rate 55; Glucose 171 mg/dL (70-99); Potassium 4.4 mmol/L (3.5-5.1); Sodium 141 mmol/L (136-145)
[2023-11-20 12:55] LABS: Alanine Aminotransferase 24 U/L (14-59); Albumin Level 3.6 g/dL (3.4-5.0); Alkaline Phosphatase 100 U/L (46-116); Aspartate Amino Transferase 19 U/L (15-37); Bilirubin,Total 1.3 mg/dL (0.00-1.00); Calcium 8.7 mg/dL (8.5-10.1); Osmolality Calculated 300 mOsm/kg (285-295); Total Protein 7.4 g/dL (6.4-8.2)
[2023-11-22 10:39] LABS: Vitamin D 25 Hydroxy 27 ng/mL (30-100)
== END 2023-11-20 11:28 | disposition home or self-care (01) ==
LOC: CHSLAB 11:29
PROVIDERS: PCP Family Medicine; Visit Provider Internal Medicine Hematology
DX: C50.911 Malignant neoplasm of unspecified site of right female breast (principal); Z51.81 Encounter for therapeutic drug level monitoring; E55.9 Vitamin D deficiency, unspecified
CPT/HCPCS: 36415; 80053; 82306; 85025; 93005

== ENCOUNTER 2024-02-10 10:26 | Outpatient (CLI) | payer MEDICARE, SELFPAY ==
--- NOTE | ~2024-02-10 | CT_ITS ---
EXAMINATION: CT chest abdomen pelvis w con DATE: 02/10/2024 11:04 INDICATION: Breast cancer with bone metastases at the left hip TECHNIQUE: Computed tomography (CT) of the chest, abdomen, and pelvis was performed with 100 mL Omnip aque-350 intravenous contrast. Automated exposure control and iterative reconstruction technique were employed. The dose-length product was 1480.22 mGy-cm. COMPARISON: None FINDINGS: CHEST CT: Left internal jugular central venous port catheter with distal tip at the superior cavoatrial junctio n. Unchanged discoid atelectasis/scarring in the lingula along the major fissure. 2-3 mm perihilar no dule in the right middle lobe. No pneumonia, pulmonary edema or pleural effusion. Heart size is hamzah l. Atherosclerotic coronary artery calcifications. No pericardial effusion. Ectatic aortic root measu ring up to 4.0 cm in maximal diameter. No pathologically enlarged thoracic lymphadenopathy. Postopera tive change of bilateral axillary lymph node dissections. The loculated fluid collection previously s een at the right axilla likely represent a postoperative hematoma/seroma has resolved. Subtle interva l increase in size and degree of sclerosis of multiple small sclerotic lesions in the thoracic spine, , sternum and heads of the bilateral clavicles. ABDOMEN/PELVIS CT: Small calcified gallstone at the neck of the normal gallbladder. Liver, spleen, pancreas, bilateral a drenal glands and right kidney are normal. 1.5 cm left renal cyst. There are also couple nonobstructi ng stones at the upper pole of the left kidney the larger measuring 9 mm in maximal diameter. Bowels including the appendix are normal. Bladder, anteverted uterus and bilateral adnexa are unremarkable. No free intraperitoneal gas or fluid. No pathologically enlarged abdominal or pelvic lymphadenopathy. Interval healing of the prior acute fractures of the left sacral ala, bilateral superior and inferio r pubic rami, left pubic body and left ilium. Slight interval increase in size and degree of sclerosi s associated with multiple small sclerotic lesions throughout the spine and pelvis consistent with pr ogression of osseous metastatic disease. IMPRESSION: 1. Minimal interval increase in size and degree of sclerosis of multiple scattered small sclerotic randall ne lesions in the axial and appendicular skeleton consistent with progression of metastatic disease. 2. Indeterminate new 2-3 mm perihilar right middle lobe nodule which could be infectious, inflammator y or malignant in etiology. Recommend attention on follow-up imaging. 3. Cholelithiasis. 4. Nonobstructing left nephrolithiasis. 5. Ectatic aortic root measuring up to 4.0 cm. Reviewed, dictated and finalized at location B. PENDENT AGENT MUSIC EDUCATION IMPRESSION: 1. Minimal interval increase in size and degree of sclerosis of multiple scatte red small sclerotic bone lesions in the axial and appendicular skeleton consist ent with progression of metastatic disease. 2. Indeterminate new 2-3 mm perihilar right middle lobe nodule which could be i nfectious, inflammatory or malignant in etiology. Recommend attention on follow -up imaging. 3. Cholelithiasis. 4. Nonobstructing left nephrolithiasis. 5. Ectatic aortic root measuring up to 4.0 cm.
== END 2024-02-10 10:27 | disposition home or self-care (01) ==
LOC: CHSIMG 10:27
PROVIDERS: PCP Family Medicine; Visit Provider Internal Medicine Hematology
DX: C50.911 Malignant neoplasm of unspecified site of right female breast (principal); N20.0 Calculus of kidney; R91.1 Solitary pulmonary nodule; M89.9 Disorder of bone, unspecified; I77.811 Abdominal aortic ectasia
CPT/HCPCS: 71260; 74177; Q9967

== ENCOUNTER 2024-02-17 09:18 | Outpatient (CLI) | payer MEDICARE, SELFPAY ==
--- NOTE | ~2024-02-17 | NM_ITS ---
EXAMINATION: NM bone scan whole body DATE: 02/17/2024 12:12 INDICATION: Breast cancer TECHNIQUE: 24.4 mCi Tc-99m HDP was administered intravenously. Delayed whole-body scintigrams were o btained. COMPARISON: CT dated 02/10/2024 FINDINGS: No foci of abnormal bone uptake associated with the multiple scattered sclerotic lesions in the spine and pelvis as evident on the prior study consistent with response to treatment of biopsy-proven osse ous metastatic disease. There is asymmetric prominent increased activity at the calyces of the upper pole the left kidney where there is mild hydronephrosis secondary to likely at least partially obstru cting infundibular stones as seen on the prior CT. IMPRESSION: 1. No abnormal uptake associated with the multiple scattered bone lesions seen on prior CT including one at the right ilium which was previously biopsied demonstrating metastatic disease which is consis tent with response to treatment. Reviewed, dictated and finalized at location B. INUITY COORDINATOR IMPRESSION: 1. No abnormal uptake associated with the multiple scattered bone lesions seen on prior CT including one at the right ilium which was previously biopsied demo nstrating metastatic disease which is consistent with response to treatment.
== END 2024-02-17 09:19 | disposition home or self-care (01) ==
PROVIDERS: PCP Family Medicine; Visit Provider Internal Medicine Hematology
DX: C50.911 Malignant neoplasm of unspecified site of right female breast (principal)
CPT/HCPCS: 78306; A9561

== ENCOUNTER 2024-03-23 08:59 | Outpatient (CLI) | payer MEDICARE, SELFPAY ==
[2024-03-23 09:20] LABS: Hematocrit 29.3 % (35.0-42.0); Hemoglobin 9.8 g/dL (11.7-13.8); Mean Corpuscular HGB Conc 33.4 g/dL (32-36); Mean Corpuscular Hemoglobin 33.9 pg (27.0-31.0); Mean Corpuscular Volume 101.4 fL (78.0-102.0); Mean Platelet Volume 10.1 fl (9.2-11.8); Platelet Count Result 118 K/mm3 (150-420); Red Blood Count 2.89 M/mm3 (4.20-5.40); Red Cell Distribution Width 14.1 % (11.6-14.4); White Blood Count 2.9 K/mm3 (4.8-10.8)
[2024-03-23 09:43] LABS: Band Neutrophils Percent 0 % (0-6); Lymphocytes Absolute Manual 1.18 K/mm3 (1.1-4.5); Lymphocytes Percent Manual 41 % (18-44); Monocytes Absolute Manual 0.34 K/mm3 (0.1-0.90); Monocytes Percent Manual 12 % (3-9); Neutrophils Absolute Manual 1.36 K/mm3 (1.7-7.2); Neutrophils Percent Manual 47 % (46-73); Platelet Estimate Slightly Decreased (Adequate); Total Cells Counted 100
[2024-03-23 10:05] LABS: Alanine Aminotransferase 19 U/L (14-59); Albumin Level 3.2 g/dL (3.4-5.0); Alkaline Phosphatase 94 U/L (46-116); Anion Gap 8 mmol/L (4-12); Aspartate Amino Transferase < 10 U/L (15-37); Bilirubin,Total 0.7 mg/dL (0.00-1.00); Blood Urea Nitrogen 20 mg/dL (7-18); Calcium 8.6 mg/dL (8.5-10.1); Carbon Dioxide 31 mmol/L (21-32); Chloride 103 mmol/L (98-108); Estimated Glomerular Filt Rate 60; Glucose 176 mg/dL (70-99); Osmolality Calculated 300 mOsm/kg (285-295); Potassium 4.1 mmol/L (3.5-5.1); Sodium 142 mmol/L (136-145); Total Protein 6.7 g/dL (6.4-8.2)
== END 2024-03-23 09:00 | disposition home or self-care (01) ==
LOC: CHSLAB 09:00
PROVIDERS: PCP Family Medicine; Visit Provider Internal Medicine Hematology
DX: C50.411 Malignant neoplasm of upper-outer quadrant of right female breast (principal)
CPT/HCPCS: 36415; 36591; 80053; 85025

== ENCOUNTER 2024-04-15 10:51 | Outpatient (CLI) | payer MEDICARE, SELFPAY ==
--- NOTE | ~2024-04-15 | XR_ITS ---
XR chest 2V Ordering provider: Cas Perdue MD History: 68 years Female with . cough chemo treatments past 2 yrs . Comparison: July 09, 2023 FINDINGS: MEDIASTINUM: The cardiac silhouette is not enlarged. Left central line with the tip overlying the superior vena cava. LUNGS: No effusions or pneumothorax. Minimal opacification in the left lower lobe suggestive of atele ctasis versus pneumonia. OTHER: No free air under the diaphragm. Degenerative changes of the spine. IMPRESSION: Left lower lobe atelectasis versus pneumonia. Reviewed, dictated and finalized at location A. OR HARDWARE ENGINEER
[2024-04-15 11:15] LABS: Basophils Absolute Auto 0.04 K/mm3 (0.00-0.10); Basophils Percent Auto 0.5 % (0.0-1.0); Eosinophils Absolute Auto 0.23 K/mm3 (0.02-0.50); Eosinophils Percent Auto 2.9 % (1.0-6.0); Hematocrit 36.3 % (35.0-42.0); Hemoglobin 11.5 g/dL (11.7-13.8); Immature Granulocyte Absolute 0.05 K/mm3 (0.00-0.00); Immature Granulocyte Percent A 0.6 % (0.0-0.0); Lymphocytes Absolute Auto 1.35 K/mm3 (1.10-4.50); Lymphocytes Percent Auto 17.2 % (18.0-42.0); Mean Corpuscular HGB Conc 31.7 g/dL (32-36); Mean Corpuscular Hemoglobin 31.3 pg (27.0-31.0); Mean Corpuscular Volume 98.9 fL (78.0-102.0); Mean Platelet Volume 9.8 fl (9.2-11.8); Monocytes Absolute Auto 0.71 K/mm3 (0.10-0.90); Neutrophils Absolute Auto 5.48 K/mm3 (1.70-7.20); Neutrophils Percent Auto 69.8 % (50.0-70.0); Platelet Count Result 209 K/mm3 (150-420); Red Blood Count 3.67 M/mm3 (4.20-5.40); Red Cell Distribution Width 13.2 % (11.6-14.4); White Blood Count 7.9 K/mm3 (4.8-10.8)
[2024-04-15 11:46] LABS: Alanine Aminotransferase 12 U/L (14-59); Albumin Level 3.7 g/dL (3.4-5.0); Alkaline Phosphatase 79 U/L (46-116); Anion Gap 10 mmol/L (4-12); Aspartate Amino Transferase 13 U/L (15-37); Bilirubin,Total 0.8 mg/dL (0.00-1.00); Blood Urea Nitrogen 24 mg/dL (7-18); Calcium 9.3 mg/dL (8.5-10.1); Carbon Dioxide 28 mmol/L (21-32); Chloride 106 mmol/L (98-108); Estimated Glomerular Filt Rate > 60; Glucose 146 mg/dL (70-99); Osmolality Calculated 305 mOsm/kg (285-295); Potassium 4.1 mmol/L (3.5-5.1); Sodium 144 mmol/L (136-145); Total Protein 7.3 g/dL (6.4-8.2)
== END 2024-04-15 10:52 | disposition home or self-care (01) ==
PROVIDERS: PCP Family Medicine; Visit Provider Internal Medicine Hematology
DX: R05.9 Cough, unspecified (principal); R91.8 Other nonspecific abnormal finding of lung field
CPT/HCPCS: 36415; 71046; 80053; 85025; 87633

== ENCOUNTER 2024-05-15 09:43 | Outpatient (CLI) | payer MEDICARE, SELFPAY ==
--- NOTE | ~2024-05-15 | CT_ITS ---
EXAMINATION: CT chest abdomen pelvis w con DATE: 05/15/2024 10:50 INDICATION: Breast cancer. Chest pain, cough and pneumonia. TECHNIQUE: Computed tomography (CT) of the chest, abdomen, and pelvis was performed with 100 mL Omnip aque-350 intravenous contrast. Automated exposure control and iterative reconstruction technique were employed. The dose-length product was 1087.69 mGy-cm. COMPARISON: 02/10/2024 FINDINGS: CHEST CT: Mild emphysema. Linear discoid atelectasis/scarring in the lingula and left lower lobe. Mild bronchia l wall thickening and subtle tree-in-bud opacities in the bilateral lower lobes and some bubbly mucus in the trachea and left mainstem bronchus consistent with bronchitis/bronchiolitis. No pulmonary kenneth ma, pleural effusion or pneumothorax. Heart size is normal. Atherosclerotic coronary artery calcifica tion is. No pericardial effusion. Unchanged ectatic aortic root measuring up to 4.0 cm. Thoracic aort a is otherwise unremarkable with no dissection. No pathologically enlarged thoracic lymphadenopathy. Multiple surgical clips at the right axilla consistent with prior lymph node dissection. New 3.5 x 1. 5 cm thick-walled lenticular fluid collection at the right axilla could represent increasing fluid wi thin a postoperative seroma, abscess in the appropriate clinical setting or recurrent malignancy. Mil d to moderate thoracic spondylosis with chronic mild anterior wedging of a few vertebral bodies at th e lower thoracic spine. Left internal jugular central venous port catheter with distal tip at the sup erior cavoatrial junction. Old healed fracture deformity right humeral neck. No interval change in mu ltiple sclerotic bone lesions in the axial and appendicular skeleton, the most prominent at T7, T8, i nferior left scapula and right sixth rib consistent with metastatic disease. ABDOMEN/PELVIS CT: Calcified gallstone within the normal incompletely distended gallbladder. Liver, spleen, pancreas, bi lateral adrenal glands and right kidney are normal. 9 mm and 6 mm stones at the upper pole calyces of the left kidney. No ureteral stones or hydronephrosis. Bowels including the appendix are normal. Prabhakar dder, uterus and bilateral adnexa are unremarkable. Multiple phleboliths in the pelvis. No free intra peritoneal gas or fluid. No pathologically enlarged abdominal or pelvic lymphadenopathy. Mild lumbar dextrocurvature with moderate spondylosis. No interval change in multiple additional sclerotic lesion s in the lumbar spine or pelvis consistent with metastatic disease. IMPRESSION: 1. No interval change in multiple scattered sclerotic bone lesions consistent with stable metastatic disease. 2. New thick-walled 3.5 x 1.5 cm lenticular fluid collection at the site of a prior right axillary ly mph node dissection. Differential would include increasing size of a previously decompressed postoper ative seroma, abscess in the appropriate clinical setting and could not exclude recurrent malignancy. 3. Bronchitis/bronchiolitis in the bilateral lower lobes. 4. Cholelithiasis. 5. Nonobstructing left nephrolithiasis. Reviewed, dictated and finalized at location A. INE HEEL SEAT LASTER IMPRESSION: 1. No interval change in multiple scattered sclerotic bone lesions consistent w ith stable metastatic disease. 2. New thick-walled 3.5 x 1.5 cm lenticular fluid collection at the site of a p rior right axillary lymph node dissection. Differential would include increasin g size of a previously decompressed postoperative seroma, abscess in the approp riate clinical setting and could not exclude recurrent malignancy. 3. Bronchitis/bronchiolitis in the bilateral lower lobes. 4. Cholelithiasis. 5. Nonobstructing left nephrolithiasis.
--- OUTSIDE RECORDS SUMMARY | 2024-05-15 09:47 | XMS_ITS | Clinical Summary ---
Author Organization [facility] Address [address] [place] [id number] Care Team Providers Care Acid Painter Name Role Phone Benja Benites DO Primary Care Provider [phone] Social History Tobacco Use Types Packs/Day Years Used Date Smoking Tobacco: Never Assessed Comments Unknown Sex and Gender Information Value Date Recorded Sex Assigned at Not on file Legal Sex Female 1:42 AM CDT Gender Identity Not on file Sexual Orientation Not on file Plan of Treatment Health Maintenance Due Date Last Done Comments Colorectal Cancer Screening Colonoscopy (10 Years) 1955 Hepatitis C 1973 DTaP, Tdap and Td Vaccines ( 1 - Tdap) 1974 Mammogram Screening 1995 Zoster Vaccines (1 of 2) 2005 Annual Medicare Wellness Visit 2020 Dexa Scan (General) 2020 Pneumococcal Vaccine: 65+ Ye ars (1 of 1 - PCV) 2020 COVID-19 Vaccine (2 - 2023-2 5 season) 2023 08/10/2020 Influenza Adult (#1) 2023 RSV Immunization or 60+ Years (1 - 1-dose 75+ series) 2030 Meningococcal B Vaccine Aged Out No l onger eligible based on patient's age to complete this topic Meningococcal Vaccine Aged Out No enrrique yeimi eligible based on patient's age to complete this topic RSV Immunizations Under 20 Months Aged Out No longer eligible based on patient's age to complete this topic Insurance [employer] Care Teams Acid Painter Relationship Specialty Start Date End Date Benja Benites DO [address] [place] [address] PCP - General FAMILY PRACTICE 09/03/22
[2024-05-15 10:19] LABS: Estimated Glomerular Filt Rate 37
== END 2024-05-15 09:44 | disposition home or self-care (01) ==
LOC: CHSIMG 09:44
PROVIDERS: PCP Family Medicine; Visit Provider Internal Medicine Hematology
DX: C50.911 Malignant neoplasm of unspecified site of right female breast (principal); M89.9 Disorder of bone, unspecified; J40 Bronchitis, not specified as acute or chronic; K80.20 Calculus of gallbladder without cholecystitis without obstruction; N20.0 Calculus of kidney
CPT/HCPCS: 71260; 74177; Q9967

== ENCOUNTER 2024-05-25 07:46 | Outpatient (CLI) | payer MEDICARE, SELFPAY ==
--- NOTE | ~2024-05-25 | US_ITS ---
EXAM: Focused ultrasound examination of the soft tissues of the right axilla HISTORY: AXILLARY LYMPHADENOPATHY/BREAST CANCER, RIGHT BREAST TECHNIQUE: Sonographic evaluation of the soft tissues of the right axilla were performed assessing gr ayscale appearance and color Doppler flow. COMPARISON: Reference is made to CT examination dated 05/15/2024. FINDINGS: Sonographic evaluation of the soft tissues of the right axilla demonstrate benign fibrofatty and fibr omuscular elements without a cystic or solid lesion of concern. IMPRESSION: No sonographic abnormality is appreciated on focused ultrasound examination, as detailed above. Reviewed, dictated and finalized at location A. H CRYSTAL MOLDER
--- NOTE | ~2024-05-25 | NM_ITS ---
EXAMINATION: NM bone scan whole body DATE: 05/25/2024 12:21 INDICATION: Evaluation. Right breast cancer. TECHNIQUE: 36.3 mCi Tc-99m HDP was administered intravenously. Delayed whole-body scintigrams were o btained. COMPARISON: Bone scan dated 02/17/[address] dated 05/15/2024 and 02/10/2024 FINDINGS: There are 2 new foci of increased uptake along the anterior left third and fourth ribs corresponding to a couple subtle nondisplaced rib fractures on CT and consistent with sequela of reported recent fa ll with left rib pain 3 weeks prior. Unchanged focus of increased uptake at the anterior left seventh rib corresponding to an earlier rib fracture. No new foci of abnormal bone uptake associated with th e multiple scattered sclerotic lesions in the spine and pelvis which were unchanged on the most recen t CT imaging consistent with response to treatment of biopsy-proven osseous metastatic disease. There is asymmetric prominent increased activity at the calyces of the upper pole the left kidney where th ere is mild hydronephrosis secondary to a likely at least partially obstructing infundibular stones a s seen on the prior CT. IMPRESSION: 1. No abnormal uptake associated with the multiple scattered sclerotic bone lesions which are unchang ed on the most recent CT consistent with treated metastatic disease. 2. Unchanged increased uptake at the anterior left seventh rib and new uptake at the anterior left th ird and fourth ribs with subtle corresponding nondisplaced rib fractures seen on CT. The 2 new left r ib lesions are likely related to reported recent fall with left rib injury 3 weeks prior. Reviewed, dictated and finalized at location B. SURY MANAGER IMPRESSION: 1. No abnormal uptake associated with the multiple scattered sclerotic bone les ions which are unchanged on the most recent CT consistent with treated metastat ic disease. 2. Unchanged increased uptake at the anterior left seventh rib and new uptake a t the anterior left third and fourth ribs with subtle corresponding nondisplace d rib fractures seen on CT. The 2 new left rib lesions are likely related to re ported recent fall with left rib injury 3 weeks prior.
--- OUTSIDE RECORDS SUMMARY | 2024-05-25 07:51 | XMS_ITS | Clinical Summary ---
Author Organization [facility] Address [address] [place] [address] Care Team Providers Care Ceiling Installer Name Role Phone Benja Benites DO Primary Care Provider Social History Tobacco Use Types Packs/Day Years [...] complete this topic Insurance A[employer] Care Teams Ceiling Installer Relationship Specialty Start Date End Date Benja Benites DO [address] [place] [address] PCP - General FAMILY PRACTICE 09/03/22
== END 2024-05-25 07:47 | disposition home or self-care (01) ==
LOC: CHSIMG 07:47
PROVIDERS: PCP Family Medicine; Visit Provider Internal Medicine Hematology
DX: C50.911 Malignant neoplasm of unspecified site of right female breast (principal); R59.0 Localized enlarged lymph nodes; M89.9 Disorder of bone, unspecified; S22.42XA Multiple fractures of ribs, left side, initial encounter for closed fracture
CPT/HCPCS: 76882; 78306; A9561

== ENCOUNTER 2024-06-17 11:33 | Outpatient (CLI) | payer MEDICARE, SELFPAY ==
[2024-06-17 11:49] LABS: Hematocrit 30.7 % (35.0-42.0); Hemoglobin 9.8 g/dL (11.7-13.8); Mean Corpuscular HGB Conc 31.9 g/dL (32-36); Mean Corpuscular Hemoglobin 30.7 pg (27.0-31.0); Mean Corpuscular Volume 96.2 fL (78.0-102.0); Mean Platelet Volume 9.3 fl (9.2-11.8); Platelet Count Result 142 K/mm3 (150-420); Red Blood Count 3.19 M/mm3 (4.20-5.40); Red Cell Distribution Width 16.5 % (11.6-14.4); White Blood Count 2.3 K/mm3 (4.8-10.8)
--- NOTE | 2024-06-17 11:49 | ECG_ITS ---
Test Date: 2024-06-17 12:01:37 Measurements Intervals [place] Rate: 79 P: 71 WA: 140 QRS: 54 QRSD: 87 T: 61 QT: 372 QTc: 427 Interpretive Statements SINUS RHYTHM NORMAL ECG Electronically Signed On 06-17-2024 12:56:44 CDT by Dejuan Cao M.D.
[2024-06-17 12:28] LABS: Band Neutrophils Percent 0 % (0-6); Lymphocytes Absolute Manual 1.03 K/mm3 (1.1-4.5); Lymphocytes Percent Manual 45 % (18-44); Monocytes Absolute Manual 0.29 K/mm3 (0.1-0.90); Monocytes Percent Manual 13 % (3-9); Neutrophils Absolute Manual 0.96 K/mm3 (1.7-7.2); Neutrophils Percent Manual 42 % (46-73); Platelet Estimate Adequate (Adequate); Total Cells Counted 100
[2024-06-17 13:02] LABS: Alanine Aminotransferase 13 U/L (14-59); Albumin Level 3.5 g/dL (3.4-5.0); Alkaline Phosphatase 139 U/L (46-116); Anion Gap 9 mmol/L (4-12); Aspartate Amino Transferase 11 U/L (15-37); Bilirubin,Total 0.8 mg/dL (0.00-1.00); Blood Urea Nitrogen 21 mg/dL (7-18); Calcium 8.9 mg/dL (8.5-10.1); Carbon Dioxide 30 mmol/L (21-32); Chloride 105 mmol/L (98-108); Estimated Glomerular Filt Rate 52; Glucose 153 mg/dL (70-99); Osmolality Calculated 304 mOsm/kg (285-295); Potassium 4.2 mmol/L (3.5-5.1); Sodium 144 mmol/L (136-145); Total Protein 7.4 g/dL (6.4-8.2)
--- OUTSIDE RECORDS SUMMARY | 2024-06-17 13:30 | XMS_ITS | Clinical Summary ---
Author Organization [facility] Address [address] [place] [address] Care Team Providers Care Psychologist Educational Name Role Phone Benja Benites DO Primary Care Provider [phone] Social History Tobacco Use Types Packs/Day Years [...] complete this topic Insurance AETNA Care Teams Psychologist Educational Relationship Specialty Start Date End Date Benja Benites DO [address] [place] [address] PCP - General FAMILY PRACTICE 09/03/22
== END 2024-06-17 11:34 | disposition home or self-care (01) ==
LOC: CHSLAB 11:35
PROVIDERS: PCP Family Medicine; Visit Provider Internal Medicine Hematology
DX: Z51.81 Encounter for therapeutic drug level monitoring (principal)
CPT/HCPCS: 36415; 80053; 85025; 93005

== ENCOUNTER 2024-08-17 08:21 | Outpatient (CLI) | payer MEDICARE, SELFPAY ==
--- NOTE | ~2024-08-17 | NM_ITS ---
EXAMINATION: NM bone scan whole body DATE: 08/17/2024 12:20 INDICATION: Bone lesions. Stage III breast cancer. TECHNIQUE: 26.8 mCi Tc-99m HDP was administered intravenously. Delayed whole-body scintigrams were o btained. COMPARISON: Bone scan dated 05/25/[address] dated 05/15/2024 FINDINGS: There is decreasing intensity of uptake associated with old fractures at the anterior left third, fou rth and seventh ribs. Additional very subtle uptake at an old fracture of the left superior and infer ior pubic rami. Mild likely degenerative joint centered uptake at the right acromioclavicular joint. No other abnormal foci of abnormal bone uptake to suggest ongoing osseous metastatic disease based wi th numerous small sclerotic bone lesions suspicious for previous noted treated metastatic disease see n on the prior CT. Again seen is asymmetric mild uptake at the upper pole of the left kidney likely a ssociated with mild caliectasis and likely partially obstructing infundibular stones on prior CT. IMPRESSION: 1. No new foci of abnormal bone uptake to suggest new or progression of chronic treated bone metastas es. 2. Decreasing activity associated with chronic left third, fourth and seventh anterior rib fractures. Reviewed, dictated and finalized at location A. IMPRESSION: 1. No new foci of abnormal bone uptake to suggest new or progression of chronic treated bone metastases. 2. Decreasing activity associated with chronic left third, fourth and seventh a nterior rib fractures.
--- NOTE | ~2024-08-17 | CT_ITS ---
Clinical Indication: Breast cancer CT Scan of the Chest, Abdomen, and Pelvis with Contrast: Technique: Contiguous sections were acquired throughout the chest, abdomen, and pelvis after intraven ous administration of 100 cc of Omnipaque 350. Dose reduction technique was used on this scan by uti nandaing automated exposure control and iterative reconstruction technique. The dose-length product (DL P) was 1069.06 mGy-cm. Comparison: 05/15/2024 Findings: There is no evidence of any significant mediastinal, hilar or axillary lymphadenopathy. Evidence of p rior right axillary rubin dissection or other postoperative change. The mediastinal soft tissues appe ar normal, aside from coronary artery calcifications. There is no evidence of pleural or pericardial effusion. The lungs are clear. No pulmonary nodules or infiltrates are noted. The liver, spleen, pancreas, adrenals and right kidney are within normal limits. Nonobstructing left renal stones are present, unchanged. Cholelithiasis noted. There are atherosclerotic calcifications o f the aorta. No lymphadenopathy. No bowel obstruction or bowel wall thickening. There is no evidence to suggest acute appendicitis. Urinary bladder is unremarkable. No pelvic mass evident. No ascites. There are scattered small sclerotic osseous lesions, similar to prior exam. Impression: Stable scattered sclerotic osseous lesions, compatible with metastatic disease, possibly treated dise ase. No soft tissue metastasis is evident. Cholelithiasis and left nephrolithiasis, unchanged. Reviewed, dictated and finalized at [facility]. Impression: Stable scattered sclerotic osseous lesions, compatible with metastatic disease, possibly treated disease. No soft tissue metastasis is evident. Cholelithiasis and left nephrolithiasis, unchanged.
--- OUTSIDE RECORDS SUMMARY | 2024-08-17 08:28 | XMS_ITS | Clinical Summary ---
Author Organization [facility] Address [address] [place] [address] Care Team Providers Care Slot Manager Name Role Phone DelmisBenja Primary Care Provider [phone] Social History Tobacco Use Types Packs/Day Years [...] 1 - Tdap) 1974 Mammogram Screening 1995 Pneumococcal Vaccine: 50+ Ye ars (1 of 1 - PCV) 2005 Zoster Vaccines (1 of 2) 2005 Annual Medicare Wellness Visit 2020 Dexa Scan (General) 2020 COVID-19 Vaccine (2 - 2023-2 5 season) 2023 08/10/2020 RSV Immunization or 60+ Years (1 - [...] complete this topic Insurance AETNA Care Teams Slot Manager Relationship Specialty Start Date End Date Benja Benites DO [address] [place] [address] PCP - General FAMILY PRACTICE 09/03/22
[2024-08-17 09:07] LABS: Hematocrit 30.5 % (35.0-42.0); Hemoglobin 9.7 g/dL (11.7-13.8); Mean Corpuscular HGB Conc 31.8 g/dL (32-36); Mean Corpuscular Hemoglobin 33.7 pg (27.0-31.0); Mean Corpuscular Volume 105.9 fL (78.0-102.0); Mean Platelet Volume 10.3 fl (9.2-11.8); Platelet Count Result 159 K/mm3 (150-420); Red Blood Count 2.88 M/mm3 (4.20-5.40); Red Cell Distribution Width 16.8 % (11.6-14.4); White Blood Count 3.8 K/mm3 (4.8-10.8)
[2024-08-17 09:48] LABS: Alanine Aminotransferase 12 U/L (14-59); Albumin Level 3.4 g/dL (3.4-5.0); Alkaline Phosphatase 96 U/L (46-116); Anion Gap 4 mmol/L (4-12); Aspartate Amino Transferase 10 U/L (15-37); Bilirubin,Total 0.7 mg/dL (0.00-1.00); Blood Urea Nitrogen 24 mg/dL (7-18); Calcium 8.8 mg/dL (8.5-10.1); Carbon Dioxide 31 mmol/L (21-32); Chloride 103 mmol/L (98-108); Cholesterol 94 mg/dL (0-200); Estimated Glomerular Filt Rate 40; Glucose 201 mg/dL (70-99); HDL Direct 34 mg/dL (40-60); LDL Cholesterol Calculated 28 mg/dL (<130); Osmolality Calculated 296 mOsm/kg (285-295); Potassium 4.1 mmol/L (3.5-5.1); Sodium 138 mmol/L (136-145); Total Protein 7.4 g/dL (6.4-8.2); Triglycerides 158 mg/dL (0-150)
[2024-08-17 09:54] LABS: Free T4 Free Thyroxine Reflex 0.92 ng/dL (0.78-2.19)
[2024-08-17 10:00] LABS: Band Neutrophils Percent 0 % (0-6); Basophils Absolute Manual 0.03 K/mm3 (0-0.1); Basophils Percent Manual 1 % (0-1); Lymphocytes Absolute Manual 2.01 K/mm3 (1.1-4.5); Lymphocytes Percent Manual 53 % (18-44); Monocytes Absolute Manual 0.38 K/mm3 (0.1-0.90); Monocytes Percent Manual 10 % (3-9); Neutrophils Absolute Manual 1.36 K/mm3 (1.7-7.2); Neutrophils Percent Manual 36 % (46-73); Nucleated Red Blood Cells 1 %; Platelet Estimate Adequate (Adequate); Total Cells Counted 100
[2024-08-17 10:01] LABS: Anisocytosis 2+; Hypochromasia 2+; Polychromasia 1+; Schistocytes None Seen
== END 2024-08-17 08:22 | disposition home or self-care (01) ==
LOC: CHSIMG 08:24
PROVIDERS: PCP Family Medicine; Visit Provider Internal Medicine Hematology
DX: E03.9 Hypothyroidism, unspecified (principal); I10 Essential (primary) hypertension; C50.919 Malignant neoplasm of unspecified site of unspecified female breast; M89.9 Disorder of bone, unspecified; K80.20 Calculus of gallbladder without cholecystitis without obstruction; N20.0 Calculus of kidney; M84.48XA Pathological fracture, other site, initial encounter for fracture
CPT/HCPCS: 36415; 71260; 74177; 78306; 80053; 80061; 84439; 84443; 84480; 85025; A9561; Q9967

== ENCOUNTER 2024-09-02 08:36 | Outpatient (CLI) | payer MEDICARE, SELFPAY ==
[2024-09-02] MEDS: SODIUM CHLORIDE 0.9% IV 1,000 ML 1000 ML IVPB (08:50)
[2024-09-02 08:57] VITALS: BMI 28.0
[2024-09-02 09:13] VITALS: BP 131/74; PULSE 68; RESP 16; TEMP 36.6; O2SAT 97
[2024-09-02] MEDS: HEPARIN SODIUM LOCK FLUSH 500 UNITS/5 ML SYRINGE IV PUSH (09:49)
[2024-09-02 09:55] VITALS: BP 129/77; PULSE 72; RESP 16; O2SAT 97
--- NOTE | 2024-09-02 11:08 | PC.NURSE ---
0913 Patient tolerated IV fluids well. SEE MAR/patient care notes.
== END 2024-09-02 08:37 | disposition home or self-care (01) ==
PROVIDERS: PCP Family Medicine; Visit Provider Internal Medicine Hematology
DX: C50.111 Malignant neoplasm of central portion of right female breast (principal); D70.8 Other neutropenia
CPT/HCPCS: 96360

== ENCOUNTER 2024-09-16 09:15 | Outpatient (CLI) | payer MEDICARE, SELFPAY ==
[2024-09-16 09:28] VITALS: BMI 25.8
[2024-09-16 09:30] VITALS: BP 157/60; PULSE 73; RESP 20; TEMP 36.3; O2SAT 96
[2024-09-16] MEDS: SODIUM CHLORIDE 0.9% IV 1,000 ML 1000 ML (09:40)
[2024-09-16] MEDS: HEPARIN SODIUM LOCK FLUSH 500 UNITS/5 ML SYRINGE IV PUSH (10:37)
== END 2024-09-16 10:45 | disposition home or self-care (01) ==
PROVIDERS: PCP Family Medicine; Visit Provider Internal Medicine Hematology & Oncology
DX: D70.8 Other neutropenia (principal); C50.111 Malignant neoplasm of central portion of right female breast
CPT/HCPCS: 96360; 96365; J7030

== ENCOUNTER 2024-11-23 07:48 | Outpatient (CLI) | payer MEDICARE, SELFPAY ==
--- NOTE | ~2024-11-23 | CT_ITS ---
EXAMINATION: CT chest abdomen pelvis w con DATE: 11/24/2024 17:00 CDT INDICATION: Breast cancer, right TECHNIQUE: Computed tomography (CT) of the chest, abdomen, and pelvis was performed with intravenous contrast. The dose-length product was 1112.75 mGy-cm. COMPARISON: CT chest abdomen and pelvis 08/17/2024 FINDINGS: CHEST CT: No enlarged mediastinal or hilar lymph nodes. Heart is not enlarged. There are coronary artery calcifications, unchanged. Thoracic aorta is not aneurysmal but is partially calcified. Grossly stable appearance of the right breast and right axilla. Tracheobronchial tree is patent. No pneumothorax. No pleural effusion. No focal pulmonary consolidation. No pulmonary nodules. Grossly stable probable postsurgical change in the right breast and right axilla. ABDOMEN/PELVIS CT: Multilevel degenerative change in the visualized spine. Cholelithiasis, unchanged. Liver, spleen, adrenal glands are unremarkable. Stable nonobstructing left renal stones. No enlarged lymph nodes in the abdomen or pelvis. Bladder is unremarkable. Uterus is grossly unchanged. No dilated bowel loops. There are scattered sclerotic osseous lesions similar to the prior study. IMPRESSION: 1. Overall, grossly stable exam as compared to the study from 08/17/2024. 2. Grossly stable scattered sclerotic osseous lesions. 3. Grossly stable probable postsurgical change in the right breast and right axilla. 4. Cholelithiasis. Reviewed, dictated and finalized at location Q. IMPRESSION: 1. Overall, grossly stable exam as compared to the study from 08/17/2024. 2. Grossly stable scattered sclerotic osseous lesions. 3. Grossly stable probable postsurgical change in the right breast and right ax illa. 4. Cholelithiasis.
--- NOTE | ~2024-11-23 | NM_ITS ---
EXAMINATION: NM bone scan whole body DATE: 11/23/2024 13:51 INDICATION: Breast cancer TECHNIQUE: 27.1 mCi Tc-99m HDP was administered intravenously. Delayed whole- body scintigrams were obtained. COMPARISON: Bone scan dated 08/17/[address] chest, abdomen and pelvis dated 11/23/2024 FINDINGS: Again seen is increased uptake associated with a healing rib fractures of the anterior left fourth, fifth and eighth ribs. Also unchanged is more subtle asymmetric uptake at the left superior and inferior pubic rami fissure with old healed fractures. Additional unchanged mild likely degenerative uptake at the right humeral and acromioclavicular joints. No abnormal uptake associated with the sclerotic lesion more laterally at the left fourth rib or associated with several additional scattered small sclerotic bone lesions which previously demonstrated some increased uptake on FDG PET imaging consistent with metastatic disease. No other foci of abnormal bone uptake to suggest active metastatic disease. IMPRESSION: 1. No new foci of abnormal bone uptake to suggest new or active progression of chronic treated bone metastases. 2. Unchanged scattered foci of increased uptake associated with chronic left rib and left superior and inferior pubic rami fractures and mild likely degenerative uptake at the right shoulder. Reviewed, dictated and finalized at location A. IMPRESSION: 1. No new foci of abnormal bone uptake to suggest new or active progression of chronic treated bone metastases. 2. Unchanged scattered foci of increased uptake associated with chronic left ri b and left superior and inferior pubic rami fractures and mild likely degenerat thalia uptake at the right shoulder.
--- OUTSIDE RECORDS SUMMARY | 2024-11-23 07:58 | XMS_ITS | Clinical Summary ---
Author Organization [facility] Address [address] [place] [address] Care Team Providers Care Harvest Contractor Name Role Phone DelmisBenja Primary Care Provider [phone] Social History Tobacco Use Types Packs/Day Years [...] complete this topic Insurance AETNA Care Teams Harvest Contractor Relationship Specialty Start Date End Date Benja Benites DO [address] [place] [address] PCP - General FAMILY PRACTICE 09/03/22
[2024-11-23 09:03] LABS: Estimated Glomerular Filt Rate 45
== END 2024-11-23 07:49 | disposition home or self-care (01) ==
LOC: CHSIMG 07:53
PROVIDERS: PCP Family Medicine; Visit Provider Internal Medicine Hematology
DX: C50.911 Malignant neoplasm of unspecified site of right female breast (principal); M89.9 Disorder of bone, unspecified; K80.20 Calculus of gallbladder without cholecystitis without obstruction
CPT/HCPCS: 71260; 74177; 78306; A9561; Q9967

== ENCOUNTER 2025-01-21 11:15 | Outpatient (CLI) | payer MEDICARE, SELFPAY ==
--- NOTE | 2025-01-21 11:26 | ECG_ITS ---
Test Date: 2025-01-21 11:36:34 Measurements Intervals [place] Rate: 76 P: 0 NH: 0 QRS: -69 QRSD: 127 T: 87 QT: 436 QTc: 492 Interpretive Statements SINUS RHYTHM WITH ATRIAL PREMATURE COMPLEXES LEFT AXIS DEVIATION LEFT BUNDLE BRANCH BLOCK ABNORMAL ECG Compared to ECG 06/17/2024 12:01:37 LEFT BUNDLE BRANCH BLOCK NOW PRESENT Electronically Signed On 01-21-2025 11:57:58 CDT by Raul Jacinto D.O.
[2025-01-21 11:32] LABS: Hematocrit 28.9 % (35.0-42.0); Hemoglobin 9.5 g/dL (11.7-13.8); Mean Corpuscular HGB Conc 32.9 g/dL (32-36); Mean Corpuscular Hemoglobin 34.5 pg (27.0-31.0); Mean Corpuscular Volume 105.1 fL (78.0-102.0); Platelet Count Result 156 K/mm3 (150-420); Red Blood Count 2.75 M/mm3 (4.20-5.40); White Blood Count 2.9 K/mm3 (4.8-10.8)
[2025-01-21 11:59] LABS: Total Cells Counted 100
[2025-01-21 12:00] LABS: Band Neutrophils Percent 0 % (0-6); Iron 104 ug/dL (37-170); Lymphocytes Absolute Manual 1.21 K/mm3 (1.1-4.5); Lymphocytes Percent Manual 42 % (18-44); Monocytes Absolute Manual 0.17 K/mm3 (0.1-0.90); Monocytes Percent Manual 6 % (3-9); Neutrophils Absolute Manual 1.50 K/mm3 (1.3-6.7); Neutrophils Percent Manual 52 % (46-73)
[2025-01-21 12:01] LABS: Alanine Aminotransferase 11 U/L (6-35); Albumin Level 4.4 g/dL (3.5-5.1); Alkaline Phosphatase 74 U/L (38-126); Anion Gap 7 mmol/L (4-12); Aspartate Amino Transferase 18 U/L (14-36); Bilirubin,Total 0.9 mg/dL (0.2-1.3); Blood Urea Nitrogen 31 mg/dL (7-17); Calcium 9.4 mg/dL (8.4-10.2); Carbon Dioxide 26 mmol/L (22-30); Chloride 106 mmol/L (98-107); Estimated Glomerular Filt Rate 44; Glucose 191 mg/dL (65-110); Osmolality Calculated 299 mOsm/kg (285-295); Potassium 4.5 mmol/L (3.4-5.0); Sodium 139 mmol/L (137-145); Total Protein 8.1 g/dL (6.3-8.2)
[2025-01-21 12:10] LABS: Percent Iron Saturation 38 % (20-50)
--- OUTSIDE RECORDS SUMMARY | 2025-01-21 12:29 | XMS_ITS | Clinical Summary ---
Author Organization [facility] Address [address] [place] [address] Care Team Providers Care Pet Nutrition Specialist Name Role Phone DelmisYojanabilly BAHENA Primary Care Provider [phone] Social History Tobacco Use Types Packs/Day Years [...] Scan (General) 2020 COVID-19 Vaccine (2 - 2024-2 6 season) 2024 08/10/2020 Influenza Adult (#1) 2024 RSV Immunization or 60+ Years (1 - 1-dose 75+ series) 2030 Hepatitis A Vaccines Aged Out No long er eligible based on patient's age to complete this topic Meningococcal B Vaccine Aged Out No l onger eligible based on patient's age to complete this topic Meningococcal Vaccine Aged Out No enrrique yeimi eligible based on patient's age to complete this topic RSV Immunizations Under 20 Months Aged Out No longer eligible based on patient's age to complete this topic Insurance AETNA MEDICARE Care Teams Pet Nutrition Specialist Relationship Specialty Start Date End Date Benja Benites DO [address] [place] [address] PCP - General FAMILY PRACTICE 09/03/22
[2025-01-21 13:08] LABS: Vitamin B12 179.0 pg/mL (239-931)
== END 2025-01-21 11:16 | disposition home or self-care (01) ==
LOC: CHSLAB 11:16
PROVIDERS: PCP Family Medicine; Visit Provider Internal Medicine Hematology
DX: C50.911 Malignant neoplasm of unspecified site of right female breast (principal); I44.7 Left bundle-branch block, unspecified; R94.31 Abnormal electrocardiogram [ECG] [EKG]; E55.9 Vitamin D deficiency, unspecified
CPT/HCPCS: 36415; 80053; 82306; 82607; 82746; 83540; 83550; 85025; 93005

== ENCOUNTER 2025-02-01 07:40 | Outpatient (CLI) | payer MEDICARE, SELFPAY ==
--- NOTE | ~2025-02-01 | NM_ITS ---
EXAMINATION: NM bone scan whole body DATE: 02/01/2025 11:49 INDICATION: Breast cancer TECHNIQUE: 21.6 mCi Tc-99m MDP was administered intravenously. Delayed whole- body scintigrams were obtained. COMPARISON: 11/23/2024 FINDINGS: Progressive normalization of the mild uptake seen at the anterior left fourth, fifth and eighth ribs and at the left superior pubic ramus associated with healing fractures. No other foci of new increased bone uptake to suggest metastatic disease. IMPRESSION: 1. No new foci of abnormal increased bone uptake to suggest metastatic disease. 2. Continued normalization of small foci of now minimally increased uptake associated with healing fractures at a few anterior left ribs and the left superior pubic ramus. Reviewed, dictated and finalized at location A. S CUTTER IMPRESSION: 1. No new foci of abnormal increased bone uptake to suggest metastatic disease. 2. Continued normalization of small foci of now minimally increased uptake asso ciated with healing fractures at a few anterior left ribs and the left superior pubic ramus.
--- NOTE | ~2025-02-01 | CT_ITS ---
EXAMINATION: CT chest abdomen pelvis w con DATE: 02/01/2025 09:04 INDICATION: Breast cancer, right. TECHNIQUE: Computed tomography (CT) of the chest, abdomen, and pelvis was performed with 100 mL Omnipaque 350 intravenous contrast. Automated exposure control and iterative reconstruction technique were employed. The dose-length product was 1010.58 mGy-cm. COMPARISON: CT, chest, abdomen, and pelvis 11/23/2024 FINDINGS: CHEST CT: The lungs demonstrate minimal atelectasis. No pleural effusion. There is a left internal jugular port with tip at superior cavoatrial junction. The heart size is normal. There are coronary artery calcifications. No pericardial effusion. There is mild chronic anterior wedging of multiple vertebral bodies. There are a few scattered sclerotic lesions of bone in the spine. ABDOMEN/PELVIS CT: The liver and spleen are normal. There is a gallstone in the gallbladder, which is normal in size. The pancreas and adrenal glands are normal. There is cortical thinning of the kidneys. There is 11 mm stone in left kidney. The appendix is normal. There are no dilated loops of bowel. There are no pathologically enlarged lymph nodes. There is no free intraperitoneal fluid. There are old fractures of left superior and inferior pubic rami. There are small sclerotic lesions in the pelvis. IMPRESSION: 1. Stable scattered sclerotic bone lesions, consistent with metastatic disease. Reviewed, dictated and finalized at location E. COLLECTOR
--- OUTSIDE RECORDS SUMMARY | 2025-02-01 07:44 | XMS_ITS | Patient Health Record ---
Author Organization [facility] Address [address] [place], [place] [address] Care Team Providers Care Research And Evaluation Manager Name Role Phone MARNI REYNA Unavailable [phone] Edmund Ramon Unavailable Unavailable Reason For Referral No Information Social History Social History Additional Details Category Social Info Options Details Migrated Social History Migrated Social History Smoking Status : Never smoked , History of tobacco use : Plan Of Treatment No Information Insurance Providers Payer Name Payer Address Payer Phone Subscriber Number Group Number Insured Name Patient Relationship to Insured Coverage Start Date Coverage End Date [employer] Plan [place]PO [address] [address] [place] [id number] REESE MEJIA Self - patient is the insured
--- OUTSIDE RECORDS SUMMARY | 2025-02-01 07:44 | XMS_ITS | Clinical Summary ---
Author Organization [facility] Address [address] [place] [address] Care Team Providers Care Special Effects Artist Name Role Phone Benja Benites DO Primary Care Provider [phone] Social History Tobacco Use Types Packs/Day Years [...] this topic Insurance AETNA MEDICARE Care Teams Special Effects Artist Relationship Specialty Start Date End Date Benja Benites DO [address] [place] [address] PCP - General FAMILY PRACTICE 09/03/22
[2025-02-01 08:22] LABS: Estimated Glomerular Filt Rate 41
== END 2025-02-01 07:41 | disposition home or self-care (01) ==
PROVIDERS: PCP Family Medicine; Visit Provider Internal Medicine Hematology
DX: C50.911 Malignant neoplasm of unspecified site of right female breast (principal); M89.9 Disorder of bone, unspecified
CPT/HCPCS: 71260; 74177; 78306; A9561; Q9967